=== PATIENT | female | born 1930 | race Caucasian/White ===

== ENCOUNTER → 2017-01-17 | Outpatient (CLI) | payer MEDICARE ==
[2014-10-25 10:12] VITALS: BP 128/68
[~2017-01-17] MED LIST: ACET325T9 PO; ASPI-482 PO; ATOR20TA58 PO; IOHEXOL 240 MG/ML 50ML VIAL. PO ONE; LISI2.5T PO; METO25TA9 PO; MULT1TAB90 PO; OMEG1CAP6 PO
--- NOTE | 2017-01-17 15:02 | RAD ---
CT abdomen without contrast 01/17/2017 at 1426 hours Indication: Epigastric abdominal pain Comparison: None available Technique: Multiple axial CT images of the abdomen was performed without intravenous contrast. Coronal and sagittal reformats are provided. Oral contrast was administered. Findings: There is subsegmental atelectasis at the lung bases. Heart is enlarged. Cardiac pacer wires are partially profiled. Mitral valvular calcification is present. The lack of intravenous contrast limits evaluation of the solid abdominal viscera. The liver is normal. The spleen is normal. Bilateral adrenal glands are normal. The gallbladder is present without adjacent inflammatory changes. Pancreas is normal in appearance. No definite intrahepatic or extrahepatic biliary ductal dilatation. The abdominal aorta is normal in course and caliber. Moderate atherosclerotic calcified abdominal aorta is present. Evaluation for abdominal lymphadenopathy is limited by the lack of intravenous contrast. There is no free intraperitoneal air. No free fluid within the abdomen. There is a 1-2 mm calculus in inferior pole of the left kidney. There is no hydronephrosis. No contour deforming renal mass. Visualized small and large bowel are normal in caliber. There is a fluid collection in the anterior abdominal wall measuring 1.5 x 2.8 x 2.5 cm. No overlying skin thickening. There is a right abdominal wall hernia containing loops of nondilated small bowel, partially profiled. No suspicious osseous lesions are identified. Mild levoconvex scoliosis of the thoracolumbar spine centered at L1-L2. Moderate degenerative changes identified at L1-L2. Impression: 1. Cardiomegaly. Dense mitral valvular calcifications are present. 2. There is a nonspecific small fluid collection in the anterior abdominal wall measuring 2.8 x 1.5 x 2.4 cm. This may represent a resolving hematoma. Alternatively, correlate for site of insulin/pharmaceutical injection. There is no surrounding inflammatory change or overlying skin thickening. 3. Partially profiled right lateral abdominal wall hernia containing loops of nondilated small bowel. 4. No intraabdominal inflammatory changes are noted.
== END | disposition home or self-care (01) ==
LOC: CT 13:48
PROVIDERS: ATTEND Internal Medicine
DX: K46.9 Unspecified abdominal hernia without obstruction or gangrene (principal); I51.7 Cardiomegaly; M47.896 Other spondylosis, lumbar region; M41.86 Other forms of scoliosis, lumbar region
CPT/HCPCS: 74150; Q9966

== ENCOUNTER 2017-03-01 11:17 | Observation (INO) | payer MEDICARE ==
[2017-03-01] VITALS (8 sets, daily range): BP systolic 101–122; BP diastolic 52–69
[~2017-03-01] VITALS: Ht 147.3 cm; Wt 50.3 kg
[~2017-03-01 11:17] MED LIST changes: +CALC500T30 PO; +CHOL10003 PO; +DENO60DI SQ; +GLUC-142 PO; +HYDROmorphone 2 MG/ML VIAL IV PRN; -IOHEXOL 240 MG/ML 50ML VIAL. PO ONE; +LIDOCAINE 1% 1 ML SYRINGE. ID PRN; +MORPHINE SULFATE 4 MG/ML DISP.SYRIN. IV PRN; +ONDANSETRON PF 4 MG/2 ML VIAL. IV PRN; +PROCHLORPERAZINE 10 MG/2 ML VIAL. IV PRN; +ceFAZolin 2GM PREMIX 2 GM/50 ML BAG IV ONE; +fentaNYL PF VIAL 100 MCG/2 ML VIAL IV PRN
[2017-03-01] MEDS: IV RINGERS,LACTATED 1000ML 1,000 ML IV SCH ×2 (11:57→16:11)
--- NOTE | 2017-03-01 12:04 | EKG ---
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
[2017-03-01] MEDS ORDERED: fentaNYL PF VIAL 100 MCG/2 ML VIAL ONE ×3 (12:55→16:12)
[2017-03-01] MEDS ORDERED: DEXAMETHASONE SOD PHOS 20 MG/5 ML VIAL. ONE (12:55)
[2017-03-01] MEDS ORDERED: LIDOCAINE 2% PF Vial for OR 5 ML VIAL. ONE (12:55)
[2017-03-01] MEDS ORDERED: ONDANSETRON PF 4 MG/2 ML VIAL. ONE (12:55)
[2017-03-01] MEDS ORDERED: PROPOFOL 20 ML IV ONE (12:55)
[2017-03-01] MEDS ORDERED: ROCURONIUM 100 MG/10 ML VIAL. ONE (12:56)
[2017-03-01] MEDS ORDERED: SEVOFLURANE 61 TO 120 MINUTES. IH ONE (15:03)
[2017-03-01] MEDS ORDERED: NEOSTIGMINE METHYLSULFATE 5 MG/5 ML SYRINGE. ONE (15:03)
[2017-03-01] MEDS ORDERED: GLYCOPYRROLATE 1 MG/5 ML VIAL. ONE (15:03)
[2017-03-01] MEDS ORDERED: fentaNYL PF VIAL 100 MCG/2 ML VIAL IV PRN (15:45)
[2017-03-01] MEDS ORDERED: ONDANSETRON PF 4 MG/2 ML VIAL. IV PRN (15:45)
[2017-03-01] MEDS ORDERED: 0.9 % SODIUM CHLORIDE 10 ML DISP.SYRIN. IV PRN (15:45)
[2017-03-01] MEDS ORDERED: HYDROcodone/APAP 5/325MG 1 TAB TABLET PO PRN (15:45)
--- NOTE | 2017-03-01 15:48 | PDOC4 ---
Operative Note Operative Note Operative Note: Preoperative Diagnosis: Ventral hernia 2 Postoperative Diagnosis: Upper abdominal ventral hernia, right abdominal spigelian hernia Procedure: Repair of upper abdominal ventral hernia with mesh, repair of right spigelian hernia with mesh Surgeon: Fan Dogger: Ru WALKER Anesthesia: Gen. EBL: 20 mL Specimen: None Drains: None Complications: None Indication: The patient was referred due to the presence of 2 abdominal hernias. One is located in the upper abdomen and one in the right lower quadrant. She was offered surgical pad of the hernias. The details of hernia repair were discussed including the use of mesh. The risks of surgery were discussed as well which include bleeding, infection, hernia recurrence, pain, anesthetic risk, potential need for additional surgery or procedure. She understands and would like to proceed. Description: The patient was taken to the operating room and placed supine on the operating table. Gen. anesthesia was performed. The abdomen was prepped with ChloraPrep and draped with sterile towels, sheets, and an Ioban. Attention was directed initially to the upper midabdomen. A small vertical midline incision was made overlying the palpable hernia. Cautery dissection was carried down to the subcutaneous tissue. The patient did have some extruded fatty tissue in the subcutaneous space from the hernia. We mobilized the edges of the fascial defect showing a fairly small hernia defect. A preperitoneal plane was developed and the extruded fat was reduced to the abdominal cavity. A medium- sized Ventralex ST mesh patch was used for the repair. The mesh was placed in the newly formed preperitoneal space. The mesh provided good coverage and overlap in all directions of the hernia defect. The mesh was sutured into position with interrupted 0 Prolene placed at the 12, 3, 6, 9 o'clock positions. The fascial edges were then closed over the mesh with 0 Prolene. The wound was then covered with a sterile towel and attention was directed to the right lower quadrant. A transverse incision was made overlying the hernia. Cautery dissection was carried down to the subcutaneous tissues. The external oblique aponeurosis was intact however there was some redundancy and a prominent bulge consistent with a spigelian and hernia. The external oblique was opened exposing some extruded preperitoneal fatty contents. The edges of the hernia defect were clearly demarcated and the fatty tissue was reduced. The hernia defect was filled using a large Phasix mesh plug. The internal oblique muscle was approximated over the plug closing the hernia defect. An onlay flat Phasix mesh patch was then used to reinforce the repair. The patch was sutured into position using interrupted 2-0 Vicryl stitches. The subcutaneous tissue was then closed over the mesh with 3-0 Vicryl. The skin of both incisions was then closed with 4-0 Monocryl. Steri-Strips and sterile dressings were applied. The patient tolerated the procedure well and was sent to the recovery room in stable condition. At the end of the case all counts were correct. JOEL GOTTI MD Mar 01, 2017 15:48
[2017-03-01] MEDS: fentaNYL PF VIAL 100 MCG/2 ML VIAL IV PRN ×2 (16:14→16:34)
[2017-03-01] MEDS: IV 1/2 NORMAL SALINE 1,000 ML IV SCH (19:20)
[2017-03-02 03:00] VITALS: BP 104/45
[2017-03-02 07:20] VITALS: BP 113/48
[2017-03-02] MEDS: ENOXAPARIN 40 MG/0.4 ML SYRINGE. SQ SCH (10:58)
[2017-03-02 11:05] VITALS: BP 109/48
[2017-03-02] MEDS: IV 1/2 NORMAL SALINE 1,000 ML IV SCH (12:00)
--- NOTE | 2017-03-02 13:30 | PDOC ---
JOSSUE JIANG APRN 03/02/17 1330: SURGICAL PROGRESS NOTE Subjective she is having a significant amount of pain, cant move much due to pain no n/v has not had any pain medication Vital Signs Vital Signs Date Time Temp Pulse Resp B/P (MAP) Pulse Ox O2 Delivery O2 Flow Rate FiO2 03/02/17 11:05 98.1 78 18 109/48 (68) 96 Nasal Cannula 2.0 98.1 I&O Intake and Output 03/02/17 07:00 Intake Total 1250 ml Output Total 370 ml Balance 880 ml Intake IV Total 1250 ml Output Urine Total 350 ml Estimated Blood Loss 20 ml # Voids 3 # Bowel Movements 1 General: Alert, Oriented X3, Cooperative, No acute distress Abdomen: Soft, Other (incisional TTP, dressings dry ) Assessment/Plan s/p hernia repair increase activity, PT/OT consult discussed using some pain pills to allow for more activity Problems: JOEL GOTTI MD 03/02/172040: SURGICAL PROGRESS NOTE Assessment/Plan Reviewed, agree with above Problems: JOSSUE JIANG APRN Mar 02, 2017 13:30 JOEL GOTTI MD Mar 02, 2017 20:41
[2017-03-02 15:24] VITALS: BP 110/41
[2017-03-02 19:00] VITALS: BP 120/55
[2017-03-02] MEDS: HYDROcodone/APAP 5/325MG 1 TAB TABLET PO PRN (20:44)
[2017-03-02 23:20] VITALS: BP 126/56
[2017-03-03 03:00] VITALS: BP 113/56
[2017-03-03 07:00] VITALS: BP 133/61
[2017-03-03] MEDS: ENOXAPARIN 40 MG/0.4 ML SYRINGE. SQ SCH (09:25)
[2017-03-03] MEDS: HYDROcodone/APAP 5/325MG 1 TAB TABLET PO PRN (09:55)
[2017-03-03 11:00] VITALS: BP 121/59
--- NOTE | 2017-03-06 14:09 | PDOC3 ---
Discharge Summary Date of Admission: Mar 01, 2017 Date of Discharge: Mar 03, 2017 Follow-Up: Other (2 weeks) Admitting Diagnosis comment: ventral hernia Problems: FINAL DIAGNOSIS Upper abdominal ventral hernia, right abdominal spigelian hernia Brief Hospital Course Ms. Vega is a 86 old female who underwent repair of upper abdominal ventral hernia with mesh, repair of right spigelian hernia with mesh. Postoperatively tolerating diet, ambulating, and pain managed. Ready for discharge home. CONDITION AT DISCHARGE: Stable Discharge Medications Current Medications Ondansetron HCl (Zofran) 4 mg PRN Q6HRS PRN IV NAUSEA/VOMITING; Start 03/01/17 at 07:00; Stop 03/02/17 at 06:59; Status DC Fentanyl Citrate (Fentanyl 2ml Vial) 25 mcg PRN Q5MIN PRN IV MILD PAIN; Start 03/01/17 at 07:00; Stop 03/02/17 at 06:59; Status DC Fentanyl Citrate (Fentanyl 2ml Vial) 50 mcg PRN Q5MIN PRN IV MODERATE PAIN Last administered on 03/01/17 16:34; Start 03/01/17 at 07:00; Stop 03/02/17 at 06:59; Status DC Morphine Sulfate 1 mg PRN Q10MIN PRN IV SEVERE PAIN; Start 03/01/17 at 07:00; Stop 03/02/17 at 06:59; Status DC Ringer's Solution 1,000 ml @ 30 mls/hr Q24H IV Last administered on 03/01/17 16:11; Start 03/01/17 at 07:00; Stop 03/01/17 at 18:59; Status DC Lidocaine HCl 2 ml PRN 1X PRN ID PRIOR TO IV START; Start 03/01/17 at 07:00; Stop 03/02/17 at 06:59; Status DC Hydromorphone HCl (Dilaudid) 0.5 mg PRN Q10MIN PRN IV SEV PAIN, Second choice; Start 03/01/17 at 07:00; Stop 03/02/17 at 06:59; Status DC Prochlorperazine Edisylate (Compazine) 5 mg PACU PRN PRN IV NAUSEA, MRX1 Last administered on 03/01/17 16:13; Start 03/01/17 at 07:00; Stop 03/02/17 at 06:59 ; Status DC Cefazolin Sodium/ Dextrose 50 ml @ 100 mls/hr 1X PREOP PRN IV PRIOR TO PROCEDURE Last administered on 03/01/17t 14:08; Start 03/01/17 at 06:00; Stop at 18:00; Status DC Dexamethasone Sodium Phosphate (Decadron) 20 mg STK-MED ONCE .ROUTE ; Start at 12:55; Stop 03/01/17 at 12:56; Status DC Ondansetron HCl (Zofran) 4 mg STK-MED ONCE .ROUTE ; Start 03/01/17 at 12:55; Stop 03/01/17 at 12:56; Status DC Propofol 20 ml @ As Directed STK-MED ONCE IV ; Start 03/01/17 at 12:55; Stop at 12:56; Status DC Lidocaine HCl (Lidocaine Pf 2% Vial) 5 ml STK-MED ONCE .ROUTE ; Start 03/01/17 at 12:55; Stop 03/01/17 at 12:56; Status DC Fentanyl Citrate (Fentanyl 2ml Vial) 100 mcg STK-MED ONCE .ROUTE ; Start at 12:55; Stop 03/01/17 at 12:56; Status DC Rocuronium Bennett (Zemuron) 100 mg STK-MED ONCE .ROUTE ; Start 03/01/17 at 12: 56; Stop 03/01/17 at 12:57; Status DC Fentanyl Citrate (Fentanyl 2ml Vial) 100 mcg STK-MED ONCE .ROUTE ; Start at 13:04; Stop 03/01/17 at 13:05; Status DC Glycopyrrolate (Robinul) 1 mg STK-MED ONCE .ROUTE ; Start 03/01/17 at 15:03; Stop 03/01/17 at 15:04; Status DC Neostigmine Methylsulfate 5 mg STK-MED ONCE .ROUTE ; Start 03/01/17 at 15:03; Stop 03/01/17 at 15:04; Status DC Sevoflurane (Ultane) 60 ml STK-MED ONCE IH ; Start 03/01/17 at 15:03; Stop 03/01 at 15:04; Status DC Enoxaparin Sodium (Lovenox 40mg Syringe) 40 mg Q24H SQ Last administered on 09:25; Start 03/02/17 at 09:00; Stop 03/03/17 at 14:03; Status DC Sodium Chloride (Normal Saline Flush) 3 ml QSHIFT PRN IV AFTER MEDS AND BLOOD DRAWS; Start 03/01/17 at 15:45; Stop 03/03/17 at 14:03; Status DC Sodium Chloride 1,000 ml @ 50 mls/hr Q20H IV Last administered on 03/01/17 19 :20; Start 03/01/17 at 16:00; Stop 03/02/17 at 19:39; Status DC Acetaminophen/ Hydrocodone Bitart (Lortab 5/325) 1 tab PRN Q4HRS PRN PO MILD PAIN Last administered on 03/03/17 09:55; Start 03/01/17 at 15:45; Stop at 14:03; Status DC Acetaminophen/ Hydrocodone Bitart (Lortab 5/325) 2 tab PRN Q4HRS PRN PO MODERATE PAIN, SEVERE PAIN Last administered on 03/02/17 13:45; Start 03/01/17 at 15:45; Stop 03/03/17 at 14:03; Status DC Ondansetron HCl (Zofran) 4 mg PRN Q6HRS PRN IV NAUESA, 1ST CHOICE; Start at 15:45; Stop 03/03/17 at 14:03; Status DC Fentanyl Citrate (Fentanyl 2ml Vial) 25 mcg PRN Q2HR PRN IV PAIN; Start at 15:45; Stop 03/03/17 at 14:03; Status DC Fentanyl Citrate (Fentanyl 2ml Vial) 100 mcg STK-MED ONCE .ROUTE ; Start at 16:12; Stop 03/01/17 at 16:13; Status DC Cefazolin Sodium/ Dextrose (Ancef 2gm Premix) 2 gm STK-MED ONCE IV ; Start 03/01 at 06:00; Stop 03/02/17 at 11:43; Status DC Active Scripts Active Fish Oil 1,000 Mg Capsule ([place]-3 Fatty Acids/Fish Oil) 1,000 Mg Capsule 1,000 Mg PO DAILY Thera-M Tablet (Multivits,Ca,Minerals/Iron/Fa) 1 Tab Tablet 1 Tab PO DAILY Tylenol (Acetaminophen) 325 Mg Tablet 650 Mg PO PRN Q6HRS PRN Reported Osteo Bi-Flex Tablet (Glucosamine/D3/Boswellia Mira) 1 Each Tablet 1 Each PO DAILY Vitamin D3 (Cholecalciferol (Vitamin D3)) 1,000 Unit Tablet 1 Tab PO DAILY Calcium (Calcium Carbonate) 500 Mg Tablet 500 Mg PO BID Prolia (Denosumab) 60 Mg/1 Ml Disp.syrin 60 Mg SQ [id number] Aspir 81 (Aspirin) 81 Mg Tablet.dr 1 Tab PO DAILY Atorvastatin Calcium 20 Mg Tablet 1 Tab PO DAILY Allergies Allergies Coded Allergies Type Severity Reaction Last Updated Verified No Known Drug Allergies 03/01/17 No Disposition/Orders: D/C to Home Patient Instructions see discharge instructions JOSSUE JIANG DRY KILN BURNER Mar 06, 2017 14:09
== END 2017-03-03 13:50 | disposition home or self-care (01) ==
LOC: SURG 11:17 → 4 NORTH 16:25
PROVIDERS: ADMIT Surgery; ATTEND Surgery
DX: K43.9 Ventral hernia without obstruction or gangrene (principal)
CPT/HCPCS: 49560; 49568; 49590; 93005; 96372; C1781; G0378; G0379; J0690; J0780; J1100; J1650; J2405; J2704; J2710; J3010; J3490; J7120; J2001

== ENCOUNTER 2017-04-25 22:36 | Inpatient (IN) | payer MEDICARE ==
[~2017-04-25] VITALS: Ht 149.9 cm; Wt 51.4 kg
[~2017-04-25 22:36] MED LIST changes: -HYDROmorphone 2 MG/ML VIAL IV PRN; -LIDOCAINE 1% 1 ML SYRINGE. ID PRN; +METO-239 PO; -METO25TA9 PO; -MORPHINE SULFATE 4 MG/ML DISP.SYRIN. IV PRN; -ONDANSETRON PF 4 MG/2 ML VIAL. IV PRN; -PROCHLORPERAZINE 10 MG/2 ML VIAL. IV PRN; -ceFAZolin 2GM PREMIX 2 GM/50 ML BAG IV ONE; -fentaNYL PF VIAL 100 MCG/2 ML VIAL IV PRN
--- NOTE | 2017-04-25 22:42 | PHYS DOC ---
Past Medical History Past Medical History: Arrhythmia Past Surgical History: Pacemaker Additional Past Surgical Histo: Pacemaker placed10/16/14 Alcohol Use: None Drug Use: None Adult General Chief Complaint Chief Complaint: WEAKNESS/GENERALIZED HPI HPI Patient is a 86 year old female who presents with in her lower extremity weakness and right leg numbness in addition to right side of her face numbness. She states it all started at 9:00 and for the first 30 minutes she could not move. She was having a hold onto a doorway and then finally was able to start to move. She drove herself to the ER and was able to walk into the ER. She at this point states that all of her symptoms have resolved. 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 She states it hasn't caused any trouble since then. She denies any chest pain shortness of breath nausea vomiting. She does take a baby aspirin daily. Review of Systems Review of Systems Constitutional: Denies fever or chills Eyes: Denies change in visual acuity, redness, or eye pain HENT: Denies nasal congestion or sore throat Respiratory: Denies cough or shortness of breath Cardiovascular: No additional information not addressed in HPI GI: Denies abdominal pain, nausea, vomiting, bloody stools or diarrhea : Denies dysuria or hematuria Musculoskeletal: Denies back pain or joint pain Integument: Denies rash or skin lesions Neurologic: Denies headache, focal weakness or sensory changes Endocrine: Denies polyuria or polydipsia Current Medications Current Medications Allergies Allergies Allergies Coded Allergies Type Severity Reaction Last Updated Verified No Known Drug Allergies 03/01/17 No Physical Exam Physical Exam Constitutional: Well developed, well nourished, no acute distress, non-toxic appearance. HENT: Normocephalic, atraumatic, bilateral external ears normal, oropharynx moist, no oral exudates, nose normal. Eyes: PERRLA, EOMI, conjunctiva normal, no discharge. Neck: Normal range of motion, no tenderness, supple, no stridor. Cardiovascular:Heart rate regular rhythm, 3/6 systolic ejection murmur Lungs & Thorax: Bilateral breath sounds clear to auscultation Abdomen: Bowel sounds normal, soft, no tenderness, no masses, no pulsatile masses. Skin: Warm, dry, no erythema, no rash. Back: No tenderness, no CVA tenderness. Extremities: No tenderness, no cyanosis, no clubbing, ROM intact, no edema. Neurologic: Alert and oriented X 3, normal motor function, normal sensory function, no focal deficits noted. Cranial nerves II through XII intact, strength 5 out of 5 bilateral upper and lower extremities throughout. Psychologic: Affect normal, judgement normal, mood normal. Current Patient Data Vital Signs Lab Values Laboratory Tests Test 04/25/17 22:17 White Blood Count 6.5 x10^3/uL (4.0-11.0) Red Blood Count 4.06 x10^6/uL (3.50-5.40) Hemoglobin 13.6 g/dL (12.0-15.5) Hematocrit 40.8 % (36.0-47.0) Mean Corpuscular Volume 100 fL (79-100) Mean Corpuscular Hemoglobin 33 pg (25-35) Mean Corpuscular Hemoglobin Concent 33 g/dL (31-37) Red Cell Distribution Width 14.8 % (11.5-14.5) H Platelet Count 121 x10^3/uL (140-400) L Neutrophils (%) (Auto) 52 % (31-73) Lymphocytes (%) (Auto) 30 % (24-48) Monocytes (%) (Auto) 12 % (0-9) H Eosinophils (%) (Auto) 5 % (0-3) H Basophils (%) (Auto) 1 % (0-3) Neutrophils # (Auto) 3.3 x10^3uL (1.8-7.7) Lymphocytes # (Auto) 2.0 x10^3/uL (1.0-4.8) Monocytes # (Auto) 0.8 x10^3/uL (0.0-1.1) Eosinophils # (Auto) 0.3 x10^3/uL (0.0-0.7) Basophils # (Auto) 0.1 x10^3/uL (0.0-0.2) Prothrombin Time 12.0 SEC (11.7-14.0) Prothrombin Time INR 0.9 (0.8-1.1) Sodium Level 143 mmol/L (136-145) Potassium Level 4.1 mmol/L (3.5-5.1) Chloride Level 106 mmol/L (98-107) Carbon Dioxide Level 30 mmol/L (21-32) Anion Gap 7 (6-14) Blood Urea Nitrogen 21 mg/dL (7-20) H Creatinine 0.7 mg/dL (0.6-1.0) Estimated GFR (Cockcroft-Gault) 79.3 Glucose Level 103 mg/dL (70-99) H Lactic Acid Level 1.6 mmol/L (0.4-2.0) Calcium Level 8.8 mg/dL (8.5-10.1) Magnesium Level 2.1 mg/dL (1.8-2.4) Total Bilirubin 0.4 mg/dL (0.2-1.0) Direct Bilirubin 0.1 mg/dL (0.0-0.2) Aspartate Amino Transferase (AST) 41 U/L (15-37) H Alanine Aminotransferase (ALT) 35 U/L (14-59) Alkaline Phosphatase 94 U/L (46-116) Creatine Kinase 78 U/L (26-192) Creatine Kinase MB (Mass) 6.2 ng/mL (0.0-3.6) H Creatine Kinase MB Relative Index 7.9 % (0-4) H Troponin I Quantitative 0.615 ng/mL (0.000-0.055) UQ-Dqa-S-Type Natriuretic Peptide 1557 pg/mL (0-449) H Total Protein 6.8 g/dL (6.4-8.2) Albumin 3.5 g/dL (3.4-5.0) Thyroid Stimulating Hormone (TSH) 6.370 uIU/mL (0.358-3.74) H Laboratory Tests 04/25/17 22:17 Laboratory Tests 04/25/17 22:17 EKG EKG EKG shows sinus rhythm with a rate of [address] elevations appreciated, T-wave inversions noted in V1 through V4, lead 3, aVF, normal axis , incomplete right bundle branch morphology noted, QTC 436 ms, as interpreted by me. EKG is similar to one performed March 01, 2017 Radiology/Procedures Radiology/Procedures [facility] [address] [place] [address] IMAGING REPORT Signed PATIENT: EUSEBIA HDEZ ACCOUNT: [id number] : 1930 LOCATION: ER AGE: 86 SEX: F EXAM STATUS: PRE ER ORD. PHYSICIAN: CHEO SCHULTE MD REASON: left side of body weak PROCEDURE: CT HEAD WO CONTRAST CT head without intravenous contrast History: Right foot and leg numbness since 2100 hours. Comparison: None. Technique: Axial images are obtained of the head from the skull base through the vertex without IV contrast. Exposure: One or more of the following individualized dose reduction techniques were utilized for this examination: 1. Automated exposure control 2. Adjustment of the mA and/or kV according to patient size 3. Use of iterative reconstruction technique Findings: The ventricles are appropriate in size, shape, and location for the patient's age. No obvious intracranial mass, mass-effect, midline shift, hemorrhage or obvious acute infarction is identified. Basilar cisterns are patent. Patchy, nonspecific white matter low-attenuation is seen, probably from chronic microvascular ischemic disease. Bone windows demonstrate no acute calvarial abnormality. The visualized paranasal sinuses appear clear. Impression: No acute intracranial process. Please note that CT can be relatively insensitive to acute ischemic infarction for up to 24 hours after symptom onset. Electronically signed by: Berlin Soliz MD (04/25/2017 11:19 PM) [facility] DICTATED and SIGNED BY: BERLIN SOLIZ MD DATE: 04/25/172316 CC: CHEO SCHULTE MD; BERLIN APARICIO MD ~ [facility] [address] [place] [address] IMAGING REPORT Signed PATIENT: EUSEBIA HDEZ ACCOUNT: [id number] : 1930 LOCATION: ER AGE: 86 SEX: F EXAM STATUS: REG ER ORD. PHYSICIAN: CHEO SCHULTE MD REASON: right leg numbness PROCEDURE: CTA HEAD/NECK - CODE STROKE CT angiography head and neck contrast COMPARISON: CT head April 25, 2017. TECHNIQUE: Helical CT imaging of the head and neck with multiplanar 3-D MIP and volume reconstructions of the arteries characterize vascular anatomy and pathology with 75 mL Omnipaque 180 300 intravenous contrast. HISTORY: Right lower extremity numbness paresthesia. PQRS statement: CT scans at this facility use dose reduction including either automated exposure control, iterative reconstructions, and /or weight based radiation dosing via mA and kV modification when appropriate to reduce radiation dose to as low as reasonably achievable. Stenosis calculations for CT, MR, and conventional angiography are based upon measurements of the distal ICA diameter in accordance with the NASCET methodology. Stenosis calculations for carotid ultrasound studies are derived from validated velocity criteria which are known to correlate with the NASCET methodology. CT angiography neck findings: Three-vessel aortic arch. Ostium of the innominate artery from the aorta is outside the [id number]-cjbe. Codominant vertebral arteries demonstrate no plaque, dissection, stenosis or occlusion. Minimal calcified plaque prevertebral right subclavian artery without stenosis. Left carotid artery demonstrates tortuosity of the proximal common carotid and thoracic inlet, there is a internal carotid artery tonsillar loop, no plaque, dissection, stenosis or occlusion. Right carotid artery demonstrates internal carotid artery tonsillar loop, no plaque dissection, stenosis or occlusion. Mild bilateral apical fibrosis. Left upper lobe calcified granuloma. Cervical disc osteophytes and facet osteophytes with multilevel spinal canal and neural foraminal stenoses. Intracranial CT angiogram findings: Posterior circulation demonstrates a combined trunk of the left anterior inferior and posterior inferior cerebellar arteries. Asymmetric heterogeneous diminished contrast enhancement of the left posterior inferior cerebellar artery could be indicative of stenotic disease no discrete filling defect or occlusion. Anterior circulation demonstrates calcified plaque of the cavernous carotid arteries with no stenosis. Ophthalmic arteries demonstrate patent enhancement. A patent anterior communicating artery. No intracranial arterial filling defect, stenosis, occlusion or aneurysm. Developmental venous anomaly left cerebellum. CT angiography neck impression: No plaque, stenosis or occlusion of the cervical carotid and vertebral arteries. Cervical disc disease. Intracranial CT angiogram impression: Multifocal stenoses of the left posterior inferior cerebellar artery may be due to plaque. No intra-arterial thromboembolus, occlusion or aneurysm. Electronically signed by: Simone Reich MD (04/26/2017 12:49 AM) [facility] DICTATED and SIGNED BY: SIMONE REICH MD DATE: 04/26/17 003 CC: CHEO SCHULTE MD; BERLIN APARICIO MD ~ Impressions: Bilateral leg weakness-resolved Right leg numbness-resolved Elevated troponin Dyslipidemia Osteoarthritis Pacemaker Course & Med Decision Making Course & Med Decision Making Pertinent Labs and Imaging studies reviewed. (See chart for details) Patient presents with complaints of bilateral leg weakness and inability to move them for about 30 minutes and then numbness in her right leg. Her NIH is 0. All of her symptoms have resolved upon arrival to the ER. She denies any shortness of breath fevers chills nausea or vomiting or chest pain. Her EKG is similar one performed in February 09, 2017. Her troponin is elevated at 0.6. We will start Lovenox, give full dose aspirin and admit to Dr. Aparicio with cardiology consultation and neurology auscultation. Patient's agreeable plans being in stable condition this time. I did discuss this plan with Dr. Aparicio and he agrees. Dragon Disclaimer Dragon Disclaimer This electronic medical record was generated, in whole or in part, using a voice recognition dictation system. Departure Departure Impression: Primary Impression: Elevated troponin Disposition: ADMITTED INPATIENT Admitting Physician: Berlin Aparicio Condition: STABLE Referrals: BERLIN APARICIO MD (PCP) CHEO SCHULTE MD Apr 25, 2017 22:42
[2017-04-25 23:20] LABS: BASO # 0.1 x10^3/uL (0.0-0.2); BASO % 1 % (0-3); EOS % 5 % (0-3); HEMATOCRIT 40.8 % (36.0-47.0); HEMOGLOBIN 13.6 g/dL (12.0-15.5); LYMPH % 30 % (24-48); MEAN CORPUSCULAR HEMOGLOBIN 33 pg (25-35); MEAN CORPUSCULAR HGB CONC 33 g/dL (31-37); MEAN CORPUSCULAR VOLUME 100 fL (79-100); MONO % 12 % (0-9); NEUT % 52 % (31-73); PLATELET COUNT 121 x10^3/uL (140-400); RED BLOOD COUNT 4.06 x10^6/uL (3.50-5.40); RED CELL DISTRIBUTION WIDTH 14.8 % (11.5-14.5); WHITE BLOOD COUNT 6.5 x10^3/uL (4.0-11.0)
--- NOTE | 2017-04-25 23:22 | RAD ---
CT head without intravenous contrast History: Right foot and leg numbness since 2100 hours. Comparison: None. Technique: Axial images are obtained of the head from the skull base through the vertex without IV contrast. Exposure: One or more of the following individualized dose reduction techniques were utilized for this examination: 1. Automated exposure control 2. Adjustment of the mA and/or kV according to patient size 3. Use of iterative reconstruction technique Findings: The ventricles are appropriate in size, shape, and location for the patient's age. No obvious intracranial mass, mass-effect, midline shift, hemorrhage or obvious acute infarction is identified. Basilar cisterns are patent. Patchy, nonspecific white matter low-attenuation is seen, probably from chronic microvascular ischemic disease. Bone windows demonstrate no acute calvarial abnormality. The visualized paranasal sinuses appear clear. Impression: No acute intracranial process. Please note that CT can be relatively insensitive to acute ischemic infarction for up to 24 hours after symptom onset. Electronically signed by: Berlin Castano MD (04/25/2017 11:19 PM) [facility]
[2017-04-25 23:27] LABS: INR 0.9 (0.8-1.1)
[2017-04-25 23:32] LABS: CALCIUM 8.8 mg/dL (8.5-10.1); CREATININE 0.7 mg/dL (0.6-1.0); GFR 79.3; POTASSIUM 4.1 mmol/L (3.5-5.1)
[2017-04-25] MEDS ORDERED: CONTRAST GIVEN MC PRN (23:45)
[2017-04-25 23:46] LABS: ALBUMIN 3.5 g/dL (3.4-5.0); DIRECT BILIRUBIN 0.1 mg/dL (0.0-0.2); MAGNESIUM 2.1 mg/dL (1.8-2.4); TOTAL BILIRUBIN 0.4 mg/dL (0.2-1.0); TOTAL PROTEIN 6.8 g/dL (6.4-8.2)
[2017-04-25 23:53] LABS: CKMB MASS 6.2 ng/mL (0.0-3.6)
[2017-04-26] VITALS (7 sets, daily range): BP systolic 121–147; BP diastolic 64–86
[2017-04-26] MEDS ORDERED: IV NORMAL SALINE 1000ML BAG 500 ML IV ONE
[2017-04-26 00:14] LABS: BILIRUBIN,URINE NEGATIVE (NEG); GLUCOSE,URINE NEGATIVE (NEG); NITRITE,URINE NEGATIVE (NEG); PH,URINE 6.5; PROTEIN,URINE NEGATIVE (NEG-TRACE); UROBILINOGEN,URINE 0.2 mg/dL (0.2 mg/dL)
[2017-04-26 00:19] LABS: BARBITURATES NEG (NEG); BENZODIAZEPINES NEG (NEG); CANNABINOIDS NEG (NEG); COCAINE NEG (NEG); METHADONE NEG (NEG); OPIATES NEG (NEG); PHENCYCLIDINE NEG (NEG)
[2017-04-26] MEDS ORDERED: IOHEXOL 300 MG/ML 75 ML VIAL IV ONE ×2 (00:30→10:45)
[2017-04-26 00:36] LABS: RBC,URINE OCC /HPF (0-2)
[2017-04-26 00:37] LABS: BACTERIA,URINE MANY /HPF (0-FEW)
--- NOTE | 2017-04-26 00:53 | RAD ---
CT angiography head and neck contrast COMPARISON: CT head April 25, 2017. TECHNIQUE: Helical CT imaging of the head and neck with multiplanar 3-D MIP and volume reconstructions of the arteries characterize vascular anatomy and pathology with 75 mL Omnipaque 180 300 intravenous contrast. HISTORY: Right lower extremity numbness paresthesia. PQRS statement: CT scans at this facility use dose reduction including either automated exposure control, iterative reconstructions, and /or weight based radiation dosing via mA and kV modification when appropriate to reduce radiation dose to as low as reasonably achievable. Stenosis calculations for CT, MR, and conventional angiography are based upon measurements of the distal ICA diameter in accordance with the NASCET methodology. Stenosis calculations for carotid ultrasound studies are derived from validated velocity criteria which are known to correlate with the NASCET methodology. CT angiography neck findings: Three-vessel aortic arch. Ostium of the innominate artery from the aorta is outside the [id number]. Codominant vertebral arteries demonstrate no plaque, dissection, stenosis or occlusion. Minimal calcified plaque prevertebral right subclavian artery without stenosis. Left carotid artery demonstrates tortuosity of the proximal common carotid and thoracic inlet, there is a internal carotid artery tonsillar loop, no plaque, dissection, stenosis or occlusion. Right carotid artery demonstrates internal carotid artery tonsillar loop, no plaque dissection, stenosis or occlusion. Mild bilateral apical fibrosis. Left upper lobe calcified granuloma. Cervical disc osteophytes and facet osteophytes with multilevel spinal canal and neural foraminal stenoses. Intracranial CT angiogram findings: Posterior circulation demonstrates a combined trunk of the left anterior inferior and posterior inferior cerebellar arteries. Asymmetric heterogeneous diminished contrast enhancement of the left posterior inferior cerebellar artery could be indicative of stenotic disease no discrete filling defect or occlusion. Anterior circulation demonstrates calcified plaque of the cavernous carotid arteries with no stenosis. Ophthalmic arteries demonstrate patent enhancement. A patent anterior communicating artery. No intracranial arterial filling defect, stenosis, occlusion or aneurysm. Developmental venous anomaly left cerebellum. CT angiography neck impression: No plaque, stenosis or occlusion of the cervical carotid and vertebral arteries. Cervical disc disease. Intracranial CT angiogram impression: Multifocal stenoses of the left posterior inferior cerebellar artery may be due to plaque. No intra-arterial thromboembolus, occlusion or aneurysm. Electronically signed by: Otis Reich MD (04/26/2017 12:49 AM) [id number]
[2017-04-26] MEDS ORDERED: ASPIRIN 325 MG TABLET PO ONE (01:00)
[2017-04-26] MEDS ORDERED: ONDANSETRON PF 4 MG/2 ML VIAL. IV PRN (01:15)
[2017-04-26] MEDS ORDERED: ANTI-COAG MONITOR BY PHARMACY. MC PRN (03:45)
--- NOTE | 2017-04-26 06:46 | EKG ---
[facility] [address] [place] [address] Test Date: 2017-04-25 Test Time: 22:52:29 Pat Name: EUSEBIA HDEZ Department: Room: 256 1 Gender: F Color Checker: : 1930 Requested By: CHEO SCHULTE Order Number: [id number] Reading MD: Measurements Intervals [place] Rate: 74 P: 49 WI: 130 QRS: 49 QRSD: 118 T: -14 QT: 392 QTc: 436 Interpretive Statements SINUS RHYTHM LEFT ATRIAL ABNORMALITY R-S TRANSITION ZONE IN V LEADS DISPLACED TO THE RIGHT INCOMPLETE RIGHT BUNDLE BRANCH BLOCK T ABNORMALITY IN ANTERIOR LEADS INFERIOR LEADS ABNORMAL ECG RI6.01 No previous ECG available for comparison
--- NOTE | 2017-04-26 07:47 | RAD ---
EXAM: Chest one view. HISTORY: Weakness. COMPARISON: 10/17/2014. FINDINGS: A frontal view of the chest is obtained. A left-sided pacemaker has its leads in the right atrium and right ventricle. There are no confluent infiltrates. There is no pneumothorax or pleural effusion. The heart is mildly enlarged. IMPRESSION: 1. Mild cardiomegaly.
--- NOTE | 2017-04-26 09:08 | PDOC2 ---
GABBIE GOLDEN INSIDE TRUCKER 04/26/17 0908: CARDIAC CONSULT DATE OF CONSULT Date of Consult DATE: 04/26/17 TIME: 08:52 REASON FOR CONSULT Reason for Consult: Elevated Troponin REFERRING PHYSICIAN Referring Physician: Dr. Hannah SOURCE Source: Chart review, Patient HISTORY OF PRESENT ILLNESS HISTORY OF PRESENT ILLNESS This is an 86 yo female who presented with right-sided weakness. Patient reports symptoms began around 9 pm yesterday. Went over to her sons house last night to check on him. While she was walking down the hallway, she developed severe weakness in her bilateral legs. 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 Used her has to brace herself against the wall. [place] as if the wall was moving. Stood for about 20 mins then was able to shuffle he feet to the front door. Also experienced tingling in the right side of her face and in bilateral hands. Was somehow able to get to her car and drive herself into the ED. Symptoms largely resolved prior to arrival although she reports altered sensation in her right FA/hand and mild impaired gait. Troponin noted to be mild elevated upon arrival, which prompted this consult. No previous h/o cardiac disease. Does report h/o cerebral aneurysm noted in 1959. PAST MEDICAL HISTORY Cardiovascular: Hyperlipidemia, Other (CHB s/p Biotronik PPM) Pulmonary: No pertinent hx CENTRAL NERVOUS SYSTEM: Other (cerebral aneurysm) GI: No pertinent hx Hepatobiliary: No pertinent hx Psych: No pertinent hx Musculoskeletal: Osteoarthritis Infectious disease: No pertinent hx ENT: No pertinent hx Renal/: No pertinent hx Endocrine: No pertinent hx Dermatology: No pertinent hx PAST SURGICAL HISTORY Past Surgical History: Hernia Repair, Tonsillectomy, Other (left breast biopsy) FAMILY HISTORY Family History: Other (noncontributory to age) SOCIAL HISTORY Smoke: No ALCOHOL: none Drugs: None Lives: Alone CURRENT MEDICATIONS CURRENT MEDICATIONS Current Medications Medications (Trade) Dose Ordered Sig/Joel Route PRN Reason Start Time Stop Time Status Last Admin Dose Admin Sodium Chloride 500 ml @ 1,000 mls/hr 1X ONCE IV 04/26/17 00:00 04/26/17 00:29 DC 04/25/17 23:55 Iohexol (Omnipaque 300 Mg/ml) 75 ml 1X ONCE IV 04/26/17 00:30 04/26/17 00:31 DC 04/26/17 00:19 Aspirin (Estrella Aspirin) 325 mg 1X ONCE PO 04/26/17 01:00 04/26/17 01:01 DC 04/26/17 01:25 Enoxaparin Sodium (Lovenox 60mg Syringe) 50 mg 1X ONCE SQ 04/26/17 01:30 04/26/17 01:31 DC 04/26/17 01:25 ALLERGIES ALLERGIES: Coded Allergies: No Known Drug Allergies (Unverified , 03/01/17) ROS Review of System 14 point ROS conducted with pertinent positives noted above in HPI PHYSICAL EXAM General: Alert, Oriented X3, Cooperative, No acute distress HEENT: Atraumatic, Mucous membr. moist/pink Lungs: Clear to auscultation, Normal air movement Heart: Regular rate, Normal S1, Normal S2, Other (2/6 systolic murmur ) Abdomen: Soft, No tenderness Extremities: No edema, Normal pulses Skin: No breakdown, No significant lesion Neuro: Normal speech, Sensation intact Psych/Mental Status: Mental status NL, Mood NL MUSCULOSKELETAL: Osteoarthritic changes both hands VITALS VITALS Vital Signs Date Time Temp Pulse Resp B/P (MAP) Pulse Ox O2 Delivery O2 Flow Rate FiO2 04/26/17 07:00 97.8 62 19 133/64 (87) 95 Room Air 97.8 LABS Lab: Laboratory Tests Test 04/25/17 22:17 04/26/17 00:02 04/26/17 07:08 White Blood Count 6.5 x10^3/uL (4.0-11.0) Red Blood Count 4.06 x10^6/uL (3.50-5.40) Hemoglobin 13.6 g/dL (12.0-15.5) Hematocrit 40.8 % (36.0-47.0) Mean Corpuscular Volume 100 fL (79-100) Mean Corpuscular Hemoglobin 33 pg (25-35) Mean Corpuscular Hemoglobin Concent 33 g/dL (31-37) Red Cell Distribution Width 14.8 % (11.5-14.5) Platelet Count 121 x10^3/uL (140-400) Neutrophils (%) (Auto) 52 % (31-73) Lymphocytes (%) (Auto) 30 % (24-48) Monocytes (%) (Auto) 12 % (0-9) Eosinophils (%) (Auto) 5 % (0-3) Basophils (%) (Auto) 1 % (0-3) Neutrophils # (Auto) 3.3 x10^3uL (1.8-7.7) Lymphocytes # (Auto) 2.0 x10^3/uL (1.0-4.8) Monocytes # (Auto) 0.8 x10^3/uL (0.0-1.1) Eosinophils # (Auto) 0.3 x10^3/uL (0.0-0.7) Basophils # (Auto) 0.1 x10^3/uL (0.0-0.2) Prothrombin Time 12.0 SEC (11.7-14.0) Prothromb Time International Ratio 0.9 (0.8-1.1) Sodium Level 143 mmol/L (136-145) Potassium Level 4.1 mmol/L (3.5-5.1) Chloride Level 106 mmol/L (98-107) Carbon Dioxide Level 30 mmol/L (21-32) Anion Gap 7 (6-14) Blood Urea Nitrogen 21 mg/dL (7-20) Creatinine 0.7 mg/dL (0.6-1.0) Estimated GFR (Cockcroft-Gault) 79.3 Glucose Level 103 mg/dL (70-99) Lactic Acid Level 1.6 mmol/L (0.4-2.0) Calcium Level 8.8 mg/dL (8.5-10.1) Magnesium Level 2.1 mg/dL (1.8-2.4) Total Bilirubin 0.4 mg/dL (0.2-1.0) Direct Bilirubin 0.1 mg/dL (0.0-0.2) Aspartate Amino Transf (AST/SGOT) 41 U/L (15-37) Alanine Aminotransferase (ALT/SGPT) 35 U/L (14-59) Alkaline Phosphatase 94 U/L (46-116) Creatine Kinase 78 U/L (26-192) Creatine Kinase MB (Mass) 6.2 ng/mL (0.0-3.6) Creatine Kinase MB Relative Index 7.9 % (0-4) Troponin I Quantitative 0.615 ng/mL (0.000-0.055) 1.711 ng/mL (0.000-0.055) FS-Rtd-A-Type Natriuretic Peptide 1557 pg/mL (0-449) Total Protein 6.8 g/dL (6.4-8.2) Albumin 3.5 g/dL (3.4-5.0) Thyroid Stimulating Hormone (TSH) 6.370 uIU/mL (0.358-3.74) Urine Collection Type Unknown Urine Color Yellow Urine Clarity Clear Urine pH 6.5 Urine Specific [place] <=1.005 Urine Protein Negative mg/dL (NEG-TRACE) Urine Glucose (UA) Negative mg/dL (NEG) Urine Ketones (Stick) Negative mg/dL (NEG) Urine Blood Negative (NEG) Urine Nitrite Negative (NEG) Urine Bilirubin Negative (NEG) Urine Urobilinogen Dipstick 0.2 mg/dL (0.2 mg/dL) Urine Leukocyte Esterase Trace (NEG) Urine RBC Occ /HPF (0-2) Urine WBC 11-20 /HPF (0-4) Urine Squamous Epithelial Cells None /LPF Urine Bacteria Many /HPF (0-FEW) Urine Opiates Screen Neg (NEG) Urine Methadone Screen Neg (NEG) Urine Barbiturates Neg (NEG) Urine Phencyclidine Screen Neg (NEG) Urine Amphetamine/Methamphetamine Neg (NEG) Urine Benzodiazepines Screen Neg (NEG) Urine Cocaine Screen Neg (NEG) Urine Cannabinoids Screen Neg (NEG) Urine Ethyl Alcohol Neg (NEG) ECHOCARDIOGRAM ECHOCARDIOGRAM <Conclusion> Left ventricle systolic function is normal. The Ejection Fraction is estimated at 50-55%. Transmitral Doppler flow pattern is Grade I-abnormal relaxation pattern. The left atrium is moderately dilated. There is moderate valvular aortic stenosis with mean pressure gradient of 26 mmHg. Prolapse of posterior mitral valve leaflet with moderate to severe mitral regurgitation. Mild to moderate tricuspid regurgitation. There is mild-moderate pulmonary hypertension. The PA pressure was estimated at 39 mmHg. There is no evidence of significant pericardial effusion. DATE: 12/11/15 1604 ASSESSMENT/PLAN ASSESSMENT/PLAN 1. NSTEMI; highest 1.7. CP free. Previous echo with preserved LV function as noted above- will repeat. 2. Hypertension; well-controlled 3. Hyperlipidemia; resume statin 4. Possible CVA; CT angiogram notable for left posterior cerebellar artery stenosis. PT/OT. neurology following 5. PPM in situ (Biotronik) 6. NSVT; brief episode of NSVT this am noted on telemetry. Mg WNL 7. Hypothyroidism; TSH 6.37. Management as per PCP Recommendations Obtain check to assess LV function/presence of WMA check lipid, trend troponin ASA, Lovenox administered Interrogate device Consider further ischemia workup Further recommendations pending diagnostics. Problems: ARA KRAMER MD 04/26/17 1645: CARDIAC CONSULT ALLERGIES ALLERGIES: Coded Allergies: No Known Drug Allergies (Unverified , 03/01/17) ASSESSMENT/PLAN ASSESSMENT/PLAN Patient seen and examined. 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 Troponin elevation consistent with non-STEMI but patient is chest pain-free. Brief episode of NSVT noted on telemetry. 2-D echo showed normal LV function with moderate aortic stenosis and moderate mitral regurgitation. Plan for Lexiscan nuclear stress test to rule out ischemia. Continue workup of stroke-like symptoms per neurology team. Thank you for your consultation. Problems: GABBIE GOLDEN APRN Apr 26, 2017 09:08 ARA KRAMER MD Apr 26, 2017 16:45
[2017-04-26 09:30] LABS: CHOLESTEROL/HDL RATIO 2.2
[2017-04-26] MEDS ORDERED: ACETAMINOPHEN 500 MG TABLET PO PRN (10:30)
[2017-04-26] MEDS ORDERED: MAGNESIUM HYDROXIDE 2,400 MG/30 ML ORAL.SUSP. PO PRN (10:30)
--- NOTE | 2017-04-26 10:31 | PDOC ---
Provider Note Provider Note history and physical dictated # [id number] BASIL APARICIO MD Apr 26, 2017 10:31
--- NOTE | 2017-04-26 10:42 | PDOC2 ---
NEUROLOGY CONSULT Date of Admission Date of Admission DATE: 04/26/17 TIME: 10:33 Reason for Consult Reason for Consult: Stroke symptoms Referring Physician Referring Physician: Dr. Chauhan Source Source: Caregiver, Chart review, Patient History of Present Illness History of Present Illness The patient is an 86-year-old right-handed female who was visiting family last night. About 9 PM she noticed right arm numbness and difficulty moving both feet. She felt lightheaded. She had to hold onto the wall. All symptoms resolved by the time she reached the emergency department, so she was deemed not to be an alteplase candidate. There is no prior history of stroke, seizure, or head injury. Past Medical History Musculoskeletal: Osteoarthritis Renal/: UTI, Other ( nephrolithiasis) Endocrine: Osteoporosis Past Surgical History Past Surgical History: Pacemaker, Cataract Removal, Tonsillectomy, Other ( Breast biopsy) Family History Family History: No pertinent hx Social History Social History , lives alone, no alcohol or tobacco Current Medications Current Medications Current Medications Sodium Chloride 500 ml @ 1,000 mls/hr 1X ONCE IV Last administered on 23:55; Start 04/26/17 at 00:00; Stop 04/26/17 at 00:29; Status DC Iohexol (Omnipaque 300 Mg/ml) 75 ml 1X ONCE IV Last administered on 00:19; Start 04/26/17 at 00:30; Stop 04/26/17 at 00:31; Status DC Info (Do NOT chart on this entry -- for MONITORING) 1 each PRN DAILY PRN MC SEE COMMENTS; Start 04/25/17 at 23:45; Stop 04/27/17 at 23:44 Aspirin (Estrella Aspirin) 325 mg 1X ONCE PO Last administered on 04/26/17 01: 25; Start 04/26/17 at 01:00; Stop 04/26/17 at 01:01; Status DC Ondansetron HCl (Zofran) 4 mg PRN Q8HRS PRN IV NAUSEA/VOMITING; Start at 01:15; Stop 04/27/17 at 01:14 Enoxaparin Sodium (Lovenox Per Pharmacy Treatment Dosing) 1 each PRN DAILY PRN MC SEE COMMENTS; Start 04/26/17 at 01:15 Enoxaparin Sodium (Lovenox 60mg Syringe) 50 mg 1X ONCE SQ Last administered on 04/26/17t 01:25; Start 04/26/17 at 01:30; Stop 04/26/17 at 01:31; Status DC Enoxaparin Sodium (Lovenox 60mg Syringe) 50 mg Q12HR SQ ; Start 04/26/17 at 09: 00 Info (Anti-Coagulation Monitoring By Pharmacy) 1 each PRN DAILY PRN MC SEE COMMENTS; Start 04/26/17 at 03:45 Aspirin (Estrella Aspirin) 325 mg DAILYWBKFT PO ; Start 04/26/17 at 11:00 Atorvastatin Calcium (Lipitor) 20 mg QHS PO ; Start 04/26/17 at 21:00 Calcium Carbonate/ Glycine (Tums) 500 mg BIDWMEALS PO ; Start 04/26/17 at 11:00 Multivitamins (Thera M Plus) 1 tab DAILY PO ; Start 04/26/17 at 11:00 Vitamin D (Vitamin D3) 1,000 unit DAILY PO ; Start 04/26/17 at 11:00 Acetaminophen (Tylenol) 500 mg PRN Q6HRS PRN PO MILD PAIN / TEMP; Start at 10:30 Magnesium Hydroxide (Milk Of Magnesia) 2,400 mg PRN DAILY PRN PO CONSTIPATION; Start 04/26/17 at 10:30 Iohexol (Omnipaque 300 Mg/ml) 75 ml 1X ONCE IV ; Start 04/26/17 at 10:30; Stop 04/26/17 at 10:31; Status UNV Active Scripts Active Fish Oil 1,000 Mg Capsule ([place]-3 Fatty Acids/Fish Oil) 1,000 Mg Capsule 1,000 Mg PO DAILY Thera-M Tablet (Multivits,Ca,Minerals/Iron/Fa) 1 Tab Tablet 1 Tab PO DAILY Tylenol (Acetaminophen) 325 Mg Tablet 650 Mg PO PRN Q6HRS PRN Reported Osteo Bi-Flex Tablet (Glucosamine/D3/Boswellia Mira) 1 Each Tablet 1 Each PO DAILY Vitamin D3 (Cholecalciferol (Vitamin D3)) 1,000 Unit Tablet 1 Tab PO DAILY Calcium (Calcium Carbonate) 500 Mg Tablet 500 Mg PO BID Prolia (Denosumab) 60 Mg/1 Ml Disp.syrin 60 Mg SQ [id number] Aspir 81 (Aspirin) 81 Mg Tablet.dr 1 Tab PO DAILY Atorvastatin Calcium 20 Mg Tablet 1 Tab PO DAILY Allergies Allergies: Coded Allergies: No Known Drug Allergies (Unverified , 03/01/17) ROS Review of System Negative for fevers, chills, weight loss, shortness of breath, chest pain, indigestion, hematochezia, melena, dysuria. Full 14-point review systems is negative. Physical Exam Physical Examination PHYSICAL EXAMINATION: Vital signs: see above. General appearance is normal and in no acute distress. HEENT: Normocephalic and nontraumatic. Eyes, nose, ears, and throat are unremarkable. Neck is supple. No lymphadenopathy. No bruits are heard over the carotid artery. No crepitus. NEUROLOGICAL EXAMINATION: Mental Status Examination: Alert. Oriented to time, place, and person. Answers questions and follows commends. Pupils are equal round and reactive to light and accommodation. Extraocular movements are intact. Visual field exam shows no defect on the direct confrontation. Slight right central facial weakness. Uvula in the midline and the soft palate elevated symmetrically. No deviation of the tongue to any direction. Gross hearing is normal. Shoulder shrug normal. Muscle tone is normal. Muscle strength is 5. Deep tendon reflexes are 2+ all around. Plantar reflex is with flexion response bilaterally. Finger -to-nose test performance is accurate. Alternative movements are accurate. Gait is a little ataxic. Sensory exam shows no deficits. No cerebellar signs are elicited. Vitals VITALS Vital Signs Date Time Temp Pulse Resp B/P (MAP) Pulse Ox O2 Delivery O2 Flow Rate FiO2 04/26/17 07:00 97.8 62 19 133/64 (87) 95 Room Air 97.8 Labs Labs Laboratory Tests Test 04/25/17 22:17 04/26/17 00:02 04/26/17 07:08 White Blood Count 6.5 x10^3/uL (4.0-11.0) Red Blood Count 4.06 x10^6/uL (3.50-5.40) Hemoglobin 13.6 g/dL (12.0-15.5) Hematocrit 40.8 % (36.0-47.0) Mean Corpuscular Volume 100 fL (79-100) Mean Corpuscular Hemoglobin 33 pg (25-35) Mean Corpuscular Hemoglobin Concent 33 g/dL (31-37) Red Cell Distribution Width 14.8 % (11.5-14.5) Platelet Count 121 x10^3/uL (140-400) Neutrophils (%) (Auto) 52 % (31-73) Lymphocytes (%) (Auto) 30 % (24-48) Monocytes (%) (Auto) 12 % (0-9) Eosinophils (%) (Auto) 5 % (0-3) Basophils (%) (Auto) 1 % (0-3) Neutrophils # (Auto) 3.3 x10^3uL (1.8-7.7) Lymphocytes # (Auto) 2.0 x10^3/uL (1.0-4.8) Monocytes # (Auto) 0.8 x10^3/uL (0.0-1.1) Eosinophils # (Auto) 0.3 x10^3/uL (0.0-0.7) Basophils # (Auto) 0.1 x10^3/uL (0.0-0.2) Prothrombin Time 12.0 SEC (11.7-14.0) Prothromb Time International Ratio 0.9 (0.8-1.1) Sodium Level 143 mmol/L (136-145) Potassium Level 4.1 mmol/L (3.5-5.1) Chloride Level 106 mmol/L (98-107) Carbon Dioxide Level 30 mmol/L (21-32) Anion Gap 7 (6-14) Blood Urea Nitrogen 21 mg/dL (7-20) Creatinine 0.7 mg/dL (0.6-1.0) Estimated GFR (Cockcroft-Gault) 79.3 Glucose Level 103 mg/dL (70-99) Lactic Acid Level 1.6 mmol/L (0.4-2.0) Calcium Level 8.8 mg/dL (8.5-10.1) Magnesium Level 2.1 mg/dL (1.8-2.4) Total Bilirubin 0.4 mg/dL (0.2-1.0) Direct Bilirubin 0.1 mg/dL (0.0-0.2) Aspartate Amino Transf (AST/SGOT) 41 U/L (15-37) Alanine Aminotransferase (ALT/SGPT) 35 U/L (14-59) Alkaline Phosphatase 94 U/L (46-116) Creatine Kinase 78 U/L (26-192) Creatine Kinase MB (Mass) 6.2 ng/mL (0.0-3.6) Creatine Kinase MB Relative Index 7.9 % (0-4) Troponin I Quantitative 0.615 ng/mL (0.000-0.055) 1.711 ng/mL (0.000-0.055) WX-Bjq-D-Type Natriuretic Peptide 1557 pg/mL (0-449) Total Protein 6.8 g/dL (6.4-8.2) Albumin 3.5 g/dL (3.4-5.0) Thyroid Stimulating Hormone (TSH) 6.370 uIU/mL (0.358-3.74) Urine Collection Type Unknown Urine Color Yellow Urine Clarity Clear Urine pH 6.5 Urine Specific [place] <=1.005 Urine Protein Negative mg/dL (NEG-TRACE) Urine Glucose (UA) Negative mg/dL (NEG) Urine Ketones (Stick) Negative mg/dL (NEG) Urine Blood Negative (NEG) Urine Nitrite Negative (NEG) Urine Bilirubin Negative (NEG) Urine Urobilinogen Dipstick 0.2 mg/dL (0.2 mg/dL) Urine Leukocyte Esterase Trace (NEG) Urine RBC Occ /HPF (0-2) Urine WBC 11-20 /HPF (0-4) Urine Squamous Epithelial Cells None /LPF Urine Bacteria Many /HPF (0-FEW) Urine Opiates Screen Neg (NEG) Urine Methadone Screen Neg (NEG) Urine Barbiturates Neg (NEG) Urine Phencyclidine Screen Neg (NEG) Urine Amphetamine/Methamphetamine Neg (NEG) Urine Benzodiazepines Screen Neg (NEG) Urine Cocaine Screen Neg (NEG) Urine Cannabinoids Screen Neg (NEG) Urine Ethyl Alcohol Neg (NEG) Triglycerides Level 42 mg/dL (0-150) Cholesterol Level 165 mg/dL (0-200) LDL Cholesterol, Calculated 81 mg/dL (0-100) VLDL Cholesterol, Calculated 8 mg/dL (0-40) Non-HDL Cholesterol Calculated 89 mg/dL (0-129) HDL Cholesterol 76 mg/dL (40-60) Cholesterol/HDL Ratio 2.2 Laboratory Tests Test 04/25/17 22:17 04/26/17 00:02 04/26/17 07:08 White Blood Count 6.5 x10^3/uL (4.0-11.0) Red Blood Count 4.06 x10^6/uL (3.50-5.40) Hemoglobin 13.6 g/dL (12.0-15.5) Hematocrit 40.8 % (36.0-47.0) Mean Corpuscular Volume 100 fL (79-100) Mean Corpuscular Hemoglobin 33 pg (25-35) Mean Corpuscular Hemoglobin Concent 33 g/dL (31-37) Red Cell Distribution Width 14.8 % (11.5-14.5) Platelet Count 121 x10^3/uL (140-400) Neutrophils (%) (Auto) 52 % (31-73) Lymphocytes (%) (Auto) 30 % (24-48) Monocytes (%) (Auto) 12 % (0-9) Eosinophils (%) (Auto) 5 % (0-3) Basophils (%) (Auto) 1 % (0-3) Neutrophils # (Auto) 3.3 x10^3uL (1.8-7.7) Lymphocytes # (Auto) 2.0 x10^3/uL (1.0-4.8) Monocytes # (Auto) 0.8 x10^3/uL (0.0-1.1) Eosinophils # (Auto) 0.3 x10^3/uL (0.0-0.7) Basophils # (Auto) 0.1 x10^3/uL (0.0-0.2) Prothrombin Time 12.0 SEC (11.7-14.0) Prothromb Time International Ratio 0.9 (0.8-1.1) Sodium Level 143 mmol/L (136-145) Potassium Level 4.1 mmol/L (3.5-5.1) Chloride Level 106 mmol/L (98-107) Carbon Dioxide Level 30 mmol/L (21-32) Anion Gap 7 (6-14) Blood Urea Nitrogen 21 mg/dL (7-20) Creatinine 0.7 mg/dL (0.6-1.0) Estimated GFR (Cockcroft-Gault) 79.3 Glucose Level 103 mg/dL (70-99) Lactic Acid Level 1.6 mmol/L (0.4-2.0) Calcium Level 8.8 mg/dL (8.5-10.1) Magnesium Level 2.1 mg/dL (1.8-2.4) Total Bilirubin 0.4 mg/dL (0.2-1.0) Direct Bilirubin 0.1 mg/dL (0.0-0.2) Aspartate Amino Transf (AST/SGOT) 41 U/L (15-37) Alanine Aminotransferase (ALT/SGPT) 35 U/L (14-59) Alkaline Phosphatase 94 U/L (46-116) Creatine Kinase 78 U/L (26-192) Creatine Kinase MB (Mass) 6.2 ng/mL (0.0-3.6) Creatine Kinase MB Relative Index 7.9 % (0-4) Troponin I Quantitative 0.615 ng/mL (0.000-0.055) 1.711 ng/mL (0.000-0.055) PT-Emd-D-Type Natriuretic Peptide 1557 pg/mL (0-449) Total Protein 6.8 g/dL (6.4-8.2) Albumin 3.5 g/dL (3.4-5.0) Thyroid Stimulating Hormone (TSH) 6.370 uIU/mL (0.358-3.74) Urine Collection Type Unknown Urine Color Yellow Urine Clarity Clear Urine pH 6.5 Urine Specific [place] <=1.005 Urine Protein Negative mg/dL (NEG-TRACE) Urine Glucose (UA) Negative mg/dL (NEG) Urine Ketones (Stick) Negative mg/dL (NEG) Urine Blood Negative (NEG) Urine Nitrite Negative (NEG) Urine Bilirubin Negative (NEG) Urine Urobilinogen Dipstick 0.2 mg/dL (0.2 mg/dL) Urine Leukocyte Esterase Trace (NEG) Urine RBC Occ /HPF (0-2) Urine WBC 11-20 /HPF (0-4) Urine Squamous Epithelial Cells None /LPF Urine Bacteria Many /HPF (0-FEW) Urine Opiates Screen Neg (NEG) Urine Methadone Screen Neg (NEG) Urine Barbiturates Neg (NEG) Urine Phencyclidine Screen Neg (NEG) Urine Amphetamine/Methamphetamine Neg (NEG) Urine Benzodiazepines Screen Neg (NEG) Urine Cocaine Screen Neg (NEG) Urine Cannabinoids Screen Neg (NEG) Urine Ethyl Alcohol Neg (NEG) Triglycerides Level 42 mg/dL (0-150) Cholesterol Level 165 mg/dL (0-200) LDL Cholesterol, Calculated 81 mg/dL (0-100) VLDL Cholesterol, Calculated 8 mg/dL (0-40) Non-HDL Cholesterol Calculated 89 mg/dL (0-129) HDL Cholesterol 76 mg/dL (40-60) Cholesterol/HDL Ratio 2.[address] head: Findings: The ventricles are appropriate in size, shape, and location for the patient's age. No obvious intracranial mass, mass-effect, midline shift, hemorrhage or obvious acute infarction is identified. Basilar cisterns are patent. Patchy, nonspecific white matter low-attenuation is seen, probably from chronic microvascular ischemic disease. Bone windows demonstrate no acute calvarial abnormality. The visualized paranasal sinuses appear clear. Impression: No acute intracranial process. Please note that CT can be relatively insensitive to acute ischemic infarction for up to 24 hours after symptom onset. CTA head and neck: CT angiography neck findings: Three-vessel aortic arch. Ostium of the innominate artery from the aorta is outside the [id number]. Codominant vertebral arteries demonstrate no plaque, dissection, stenosis or occlusion. Minimal calcified plaque prevertebral right subclavian artery without stenosis. Left carotid artery demonstrates tortuosity of the proximal common carotid and thoracic inlet, there is a internal carotid artery tonsillar loop, no plaque, dissection, stenosis or occlusion. Right carotid artery demonstrates internal carotid artery tonsillar loop, no plaque dissection, stenosis or occlusion. Mild bilateral apical fibrosis. Left upper lobe calcified granuloma. Cervical disc osteophytes and facet osteophytes with multilevel spinal canal and neural foraminal stenoses. Intracranial CT angiogram findings: Posterior circulation demonstrates a combined trunk of the left anterior inferior and posterior inferior cerebellar arteries. Asymmetric heterogeneous diminished contrast enhancement of the left posterior inferior cerebellar artery could be indicative of stenotic disease no discrete filling defect or occlusion. Anterior circulation demonstrates calcified plaque of the cavernous carotid arteries with no stenosis. Ophthalmic arteries demonstrate patent enhancement. A patent anterior communicating artery. No intracranial arterial filling defect, stenosis, occlusion or aneurysm. Developmental venous anomaly left cerebellum. CT angiography neck impression: No plaque, stenosis or occlusion of the cervical carotid and vertebral arteries. Cervical disc disease. Intracranial CT angiogram impression: Multifocal stenoses of the left posterior inferior cerebellar artery may be due to plaque. No intra-arterial thromboembolus, occlusion or aneurysm. Assessment/Plan Assessment/Plan Impression: Suspect brainstem stroke, but since symptoms had resolved by the time the patient reach the emergency department, she was not an alteplase candidate. She already had her CT angiogram, which shows left posterior inferior cerebellar artery stenosis Recommendations: She cannot have a brain MRI due to pacemaker Echocardiogram Repeat head CT tomorrow Rehabilitation modalities Agree with increased aspirin dose from 81 mg daily at home to 325 mg daily here. Continue statin, await lipid profile Treatment and workup of elevated troponin Thank you for letting me help with the patient's care. HARSH HILLIARD MD Apr 26, 2017 10:42
[2017-04-26] MEDS ORDERED: CONTRAST GIVEN MC PRN (10:45)
[2017-04-26] MEDS: MULTIVITAMIN with MINERAL TABLET. PO SCH (10:45)
[2017-04-26] MEDS: CHOLECALCIFEROL (VITAMIN D3) 1,000 UNIT TABLET PO SCH (10:45)
[2017-04-26] MEDS: CALCIUM CARBONATE 500 MG TAB.CHEW PO SCH ×2 (10:46→17:00)
[2017-04-26] MEDS: ASPIRIN 325 MG TABLET PO SCH (10:46)
--- NOTE | 2017-04-26 11:16 | HP ---
ADMIT DATE: 04/26/2017 LOCATION: She is in room 256. HISTORY OF PRESENT ILLNESS: The patient is an 86-year-old white female with history of hyperlipidemia and osteoporosis who was admitted to [facility] through the Emergency Room on 04/25/2017 when she noted the onset of swaying in the room last night when she was visiting her son and noted that she could not lift her right or left leg up and lasted for a while and then, she was able to shuffle her feet. The patient eventually drove herself to the [facility] Emergency Room and by the time she got to the Emergency Room, there was no focal weakness. She did complain of some numbness in the upper extremities this morning. She denied any chest pain. Her troponin levels noted to be elevated. She complains that she had an aneurysm of her brain in . She had some evaluation in the Emergency Room and initial CAT scan of the head was negative. Chest x-ray was unremarkable. Had a CAT scan of the head and neck angiogram, which showed no stenosis or plaque of the cervical, carotid or vertebral arteries; however, she did have multifocal stenosis on the left posterior inferior cerebellar artery. No aneurysms were seen. The patient was started on Lovenox b.i.d. in the Emergency Room and received an aspirin. She does take atorvastatin for hyperlipidemia and has a history of osteoporosis, treated with Prolia. She is therefore admitted for further evaluation of her troponin elevation and neurologic symptoms have eventually resolved. She denies any low back pain. ALLERGIES AND INTOLERANCES: None. MEDICATIONS: Prior to admission include aspirin 81 mg every day, atorvastatin 20 mg every day, calcium carbonate 500 mg b.i.d., vitamin D 1000 units every day, fish oil 1 g daily, glucosamine 500 mg every day, multiple vitamin once a day and Prolia 60 mg subQ every 6 months. PAST MEDICAL HISTORY: Significant for osteoporosis, hyperlipidemia, hypertension, osteoarthritis. She passed a kidney stone, underwent left breast biopsy in 1974. She had repair of 2 ventral abdominal hernias in 02/2017. She had an echocardiogram done on 12/11/2015 which showed moderate aortic stenosis and [id number] mitral regurgitation, mild to moderate pulmonary hypertension, mild to moderate tricuspid regurgitation with a left ventricular ejection fraction of 50%-55%. SOCIAL HISTORY: She does not drink alcohol nor she smokes cigarettes. FAMILY HISTORY: Not contributory. REVIEW OF SYSTEMS: GENERAL: She denies any fever, chills or sweats. CARDIOVASCULAR: No chest pain. PULMONARY: No cough or shortness of breath. GASTROINTESTINAL: No constipation. SKIN: No rashes. NEUROLOGIC: She had no weakness in the legs and numbness in the hand last night, numbness in upper extremities this morning. SKIN: No rashes. ENDOCRINE: No diabetes mellitus. Rest of systems reviewed are negative except as stated in history of present illness. PHYSICAL EXAMINATION: VITAL SIGNS: The temperature is 97.8 degrees, pulse 62, respiratory rate 19, blood pressure 133/64, oxygen saturation 95% on room air. HEENT: Eyes: Gaze is conjugate. Extraocular muscles are intact. Mouth: Tongue is midline. NECK: There is no cervical lymphadenopathy or thyroid enlargement. HEART: Reveals an S1, S2. There is no S3 or murmur. LUNGS: Clear. ABDOMEN: Soft, nontender. EXTREMITIES: Lower extremities without edema. Dorsalis pedis pulses 2+ bilaterally. NEUROLOGIC: She is coherent with no focal weakness in the arms or legs, [id number] testing is normal bilaterally. SKIN: No rashes. LABORATORY DATA: White count 6.5, hemoglobin 13.6, platelet count 121,000, 53 polys and 30 lymphocytes. INR of 0.9. The cholesterol was 165, LDL cholesterol 81, HDL cholesterol was 76. TSH was increased to 6.3, troponin level is 0.6, increasing to 1.7 this morning, lactic acid level was 1.6. Her magnesium was 2.1. Liver function tests were okay except for an SGOT of 41, albumin 3.5. Blood sugar was 103, proBNP was 1557. The CPK-MB index was increased to 7.9. IMPRESSION: 1. Non-ST segment elevated myocardial infarction based on elevated troponin level. 2. Bilateral lower extremity weakness, which resolved with some numbness in upper extremities this morning. 3. 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 4. Hyperlipidemia. 5. Osteoporosis. PLAN: At this time, she has consulted Cardiology and the nurse practitioner has already seen her. An echocardiogram has been ordered. We will also consult Neurology. We will see if she needs to be on b.i.d. Lovenox that was ordered by the Emergency Room. The nurse will contact the neurologist and veneer redrier to see if that needs to be continued or it can be discontinued. Continue her aspirin. I have ordered her atorvastatin. Continue with calcium and vitamin D. We will also start her on some physical and occupational therapy and we will also wait for neurologist input. Again, we will continue with the aspirin and atorvastatin. Wait for the echocardiogram and repeat her labs again tomorrow. We will increase her aspirin to 325 mg every day. BASIL APARICIO MD DR: BETH/mary jo JOB#: [id number] / [id number]
--- NOTE | 2017-04-26 16:15 | CARD ---
APPROVED REPORT EXAM: Two-dimensional and M-mode echocardiogram with Doppler and color Doppler. INDICATION Chest Pain Elevated trop 2D DIMENSIONS Left Atrium(2D)4.3 (1.6-4.0cm)IVSd1.1 (0.7-1.1cm) Aortic Root(2D)3.2 (2.0-3.7cm)LVDd4.7 (3.9-5.9cm) LVOT Diameter2.0 (1.8-2.4cm)PWd1.1 (0.7-1.1cm) LVDs3.1 (2.5-4.0cm)FS (%) 32.9 % SV61.7 mlLVEF(%)61.3 (>50%) Aortic Valve AoV Peak Jack.338.8cm/sAoV VTI71.1cm AO Peak GR.45.9mmHgLVOT Peak Jack.83.5cm/s AO Mean GR.28mmHg Mitral Valve MV E Ahvfnhsf408.9cm/sMV E Peak Gr.12mmHg MV DECEL [id number] A Ebkdidni505.4cm/s MV E Mean Gr.4mmHgE/A Ratio1.2 Tricuspid Valve TR P. [id number] [id number] TR Peak Gr.[id number] LEFT VENTRICLE The left ventricle is normal size. Sigmoid septum noted. There is borderline to mild concentric left ventricular hypertrophy. The left ventricular systolic function is normal. The Ejection Fraction is 5 5-60%. There is normal LV segmental wall motion. Transmitral Doppler flow pattern is Grade I-abnormal relaxation pattern. RIGHT VENTRICLE The right ventricle is normal size. The right ventricular systolic function is normal. ATRIA The left atrium is moderately dilated. The right atrium is mildly dilated. Possible mobile interatria l septum present. AORTIC VALVE The aortic valve is calcified and displays decreased opening. Doppler and Color Flow revealed mild ao rtic regurgitation. There is moderate valvular aortic stenosis. Calculated aortic valve area is 0.8 c m2 with maximum pressure gradient of 46 mmHg and mean pressure gradient of 28 mmHg. MITRAL VALVE The mitral valve is moderately thickened. The posterior mitral valve leaflet appears to be moderately prolapsed. There is no mitral valve stenosis. Doppler and Color-flow revealed moderate mitral regurg itation. TRICUSPID VALVE The tricuspid valve is normal in structure and function. Doppler and Color Flow revealed mild to mode rate tricuspid regurgitation. There is moderate pulmonary hypertension. The PA pressure was estimated at 40 mmHg. There is no tricuspid valve stenosis. PULMONIC VALVE The pulmonic valve is mildly thickened. Doppler and Color Flow revealed mild pulmonic valvular regurg itation. There is no pulmonic valvular stenosis. GREAT VESSELS The aortic root is normal in size. The ascending aorta is normal in size. The IVC is normal in size a nd collapses >50% with inspiration. PERICARDIAL EFFUSION There is no pleural effusion. There is no evidence of significant pericardial effusion. Critical Notification Critical Value: No <Conclusion> The left ventricular systolic function is normal. The Ejection Fraction is 55-60%. There is normal LV segmental wall motion. Transmitral Doppler flow pattern is Grade I-abnormal relaxation pattern. The left atrium is moderately dilated. There is moderate valvular aortic stenosis with mean pressure gradient of 28 mmHg. The posterior mitral valve leaflet appears to be moderately prolapsed. Moderate mitral regurgitation. Mild to moderate tricuspid regurgitation. There is moderate pulmonary hypertension woth PAP 40 mmHg. There is no evidence of significant pericardial effusion.
[2017-04-26] MEDS: ATORVASTATIN CALCIUM 20 MG TABLET PO SCH (21:09)
[2017-04-27 03:00] VITALS: BP 137/76
[2017-04-27 04:22] LABS: BASO # 0.1 x10^3/uL (0.0-0.2); BASO % 1 % (0-3); EOS % 6 % (0-3); HEMATOCRIT 41.1 % (36.0-47.0); HEMOGLOBIN 13.7 g/dL (12.0-15.5); LYMPH # 1.6 x10^3/uL (1.0-4.8); LYMPH % 28 % (24-48); MEAN CORPUSCULAR HEMOGLOBIN 33 pg (25-35); MEAN CORPUSCULAR HGB CONC 33 g/dL (31-37); MEAN CORPUSCULAR VOLUME 99 fL (79-100); MONO % 13 % (0-9); NEUT % 52 % (31-73); PLATELET COUNT 117 x10^3/uL (140-400); RED BLOOD COUNT 4.15 x10^6/uL (3.50-5.40); RED CELL DISTRIBUTION WIDTH 14.7 % (11.5-14.5); WHITE BLOOD COUNT 5.6 x10^3/uL (4.0-11.0)
[2017-04-27 04:38] LABS: CALCIUM 7.9 mg/dL (8.5-10.1); CREATININE 0.6 mg/dL (0.6-1.0); GFR 94.8; POTASSIUM 3.4 mmol/L (3.5-5.1)
[2017-04-27 07:00] VITALS: BP 126/77
[2017-04-27] MEDS: CALCIUM CARBONATE 500 MG TAB.CHEW PO SCH ×2 (08:00→17:00)
--- NOTE | 2017-04-27 08:52 | PDOC ---
PROGRESS NOTES Assessment Problems Medical Problems: (1) Elevated troponin Status: Acute Suspect brainstem stroke Left posterior inferior cerebellar artery stenosis Plan Cardiac workup Repeat head CT today Rehabilitation modalities Aspirin dose 325 mg daily Continue statin Outpatient PT Possibly home later today Subjective still a little unsteady walking Objective Vital Signs Date Time Temp Pulse Resp B/P (MAP) Pulse Ox O2 Delivery O2 Flow Rate FiO2 04/27/17 03:00 98.1 96 17 137/76 (96) 96 Room Air 98.1 PHYSICAL EXAM Alert. Oriented to time, place and person. PERRL. EOMI. CN: no focal findings. Muscle tone: normal. Muscle strength: 5/5 DTR: 1+ Plantar reflex: flexor Gait: slight ataxia Sensory exam: no abnormal findings. No appendicular cerebellar signs elicited. Review of Relevant I have reviewed the following items bettie (where applicable) has been applied. Labs Laboratory Tests Test 04/25/17 22:17 04/26/17 00:02 04/26/17 07:08 04/26/17 13:00 White Blood Count 6.5 x10^3/uL (4.0-11.0) Red Blood Count 4.06 x10^6/uL (3.50-5.40) Hemoglobin 13.6 g/dL (12.0-15.5) Hematocrit 40.8 % (36.0-47.0) Mean Corpuscular Volume 100 fL (79-100) Mean Corpuscular Hemoglobin 33 pg (25-35) Mean Corpuscular Hemoglobin Concent 33 g/dL (31-37) Red Cell Distribution Width 14.8 % (11.5-14.5) Platelet Count 121 x10^3/uL (140-400) Neutrophils (%) (Auto) 52 % (31-73) Lymphocytes (%) (Auto) 30 % (24-48) Monocytes (%) (Auto) 12 % (0-9) Eosinophils (%) (Auto) 5 % (0-3) Basophils (%) (Auto) 1 % (0-3) Neutrophils # (Auto) 3.3 x10^3uL (1.8-7.7) Lymphocytes # (Auto) 2.0 x10^3/uL (1.0-4.8) Monocytes # (Auto) 0.8 x10^3/uL (0.0-1.1) Eosinophils # (Auto) 0.3 x10^3/uL (0.0-0.7) Basophils # (Auto) 0.1 x10^3/uL (0.0-0.2) Prothrombin Time 12.0 SEC (11.7-14.0) Prothromb Time International Ratio 0.9 (0.8-1.1) Sodium Level 143 mmol/L (136-145) Potassium Level 4.1 mmol/L (3.5-5.1) Chloride Level 106 mmol/L (98-107) Carbon Dioxide Level 30 mmol/L (21-32) Anion Gap 7 (6-14) Blood Urea Nitrogen 21 mg/dL (7-20) Creatinine 0.7 mg/dL (0.6-1.0) Estimated GFR (Cockcroft-Gault) 79.3 Glucose Level 103 mg/dL (70-99) Lactic Acid Level 1.6 mmol/L (0.4-2.0) Calcium Level 8.8 mg/dL (8.5-10.1) Magnesium Level 2.1 mg/dL (1.8-2.4) Total Bilirubin 0.4 mg/dL (0.2-1.0) Direct Bilirubin 0.1 mg/dL (0.0-0.2) Aspartate Amino Transf (AST/SGOT) 41 U/L (15-37) Alanine Aminotransferase (ALT/SGPT) 35 U/L (14-59) Alkaline Phosphatase 94 U/L (46-116) Creatine Kinase 78 U/L (26-192) Creatine Kinase MB (Mass) 6.2 ng/mL (0.0-3.6) Creatine Kinase MB Relative Index 7.9 % (0-4) Troponin I Quantitative 0.615 ng/mL (0.000-0.055) 1.711 ng/mL (0.000-0.055) 1.293 ng/mL (0.000-0.055) DY-Itq-Z-Type Natriuretic Peptide 1557 pg/mL (0-449) Total Protein 6.8 g/dL (6.4-8.2) Albumin 3.5 g/dL (3.4-5.0) Thyroid Stimulating Hormone (TSH) 6.370 uIU/mL (0.358-3.74) Urine Collection Type Unknown Urine Color Yellow Urine Clarity Clear Urine pH 6.5 Urine Specific [place] <=1.005 Urine Protein Negative mg/dL (NEG-TRACE) Urine Glucose (UA) Negative mg/dL (NEG) Urine Ketones (Stick) Negative mg/dL (NEG) Urine Blood Negative (NEG) Urine Nitrite Negative (NEG) Urine Bilirubin Negative (NEG) Urine Urobilinogen Dipstick 0.2 mg/dL (0.2 mg/dL) Urine Leukocyte Esterase Trace (NEG) Urine RBC Occ /HPF (0-2) Urine WBC 11-20 /HPF (0-4) Urine Squamous Epithelial Cells None /LPF Urine Bacteria Many /HPF (0-FEW) Urine Opiates Screen Neg (NEG) Urine Methadone Screen Neg (NEG) Urine Barbiturates Neg (NEG) Urine Phencyclidine Screen Neg (NEG) Urine Amphetamine/Methamphetamine Neg (NEG) Urine Benzodiazepines Screen Neg (NEG) Urine Cocaine Screen Neg (NEG) Urine Cannabinoids Screen Neg (NEG) Urine Ethyl Alcohol Neg (NEG) Triglycerides Level 42 mg/dL (0-150) Cholesterol Level 165 mg/dL (0-200) LDL Cholesterol, Calculated 81 mg/dL (0-100) VLDL Cholesterol, Calculated 8 mg/dL (0-40) Non-HDL Cholesterol Calculated 89 mg/dL (0-129) HDL Cholesterol 76 mg/dL (40-60) Cholesterol/HDL Ratio 2.2 Test 04/27/17 04:00 White Blood Count 5.6 x10^3/uL (4.0-11.0) Red Blood Count 4.15 x10^6/uL (3.50-5.40) Hemoglobin 13.7 g/dL (12.0-15.5) Hematocrit 41.1 % (36.0-47.0) Mean Corpuscular Volume 99 fL (79-100) Mean Corpuscular Hemoglobin 33 pg (25-35) Mean Corpuscular Hemoglobin Concent 33 g/dL (31-37) Red Cell Distribution Width 14.7 % (11.5-14.5) Platelet Count 117 x10^3/uL (140-400) Neutrophils (%) (Auto) 52 % (31-73) Lymphocytes (%) (Auto) 28 % (24-48) Monocytes (%) (Auto) 13 % (0-9) Eosinophils (%) (Auto) 6 % (0-3) Basophils (%) (Auto) 1 % (0-3) Neutrophils # (Auto) 2.9 x10^3uL (1.8-7.7) Lymphocytes # (Auto) 1.6 x10^3/uL (1.0-4.8) Monocytes # (Auto) 0.7 x10^3/uL (0.0-1.1) Eosinophils # (Auto) 0.3 x10^3/uL (0.0-0.7) Basophils # (Auto) 0.1 x10^3/uL (0.0-0.2) Sodium Level 144 mmol/L (136-145) Potassium Level 3.4 mmol/L (3.5-5.1) Chloride Level 109 mmol/L (98-107) Carbon Dioxide Level 27 mmol/L (21-32) Anion Gap 8 (6-14) Blood Urea Nitrogen 16 mg/dL (7-20) Creatinine 0.6 mg/dL (0.6-1.0) Estimated GFR (Cockcroft-Gault) 94.8 Glucose Level 80 mg/dL (70-99) Calcium Level 7.9 mg/dL (8.5-10.1) Free Thyroxine 1.03 ng/dL (0.76-1.46) Laboratory Tests Test 04/26/17 13:00 04/27/17 04:00 Troponin I Quantitative 1.293 ng/mL (0.000-0.055) White Blood Count 5.6 x10^3/uL (4.0-11.0) Red Blood Count 4.15 x10^6/uL (3.50-5.40) Hemoglobin 13.7 g/dL (12.0-15.5) Hematocrit 41.1 % (36.0-47.0) Mean Corpuscular Volume 99 fL (79-100) Mean Corpuscular Hemoglobin 33 pg (25-35) Mean Corpuscular Hemoglobin Concent 33 g/dL (31-37) Red Cell Distribution Width 14.7 % (11.5-14.5) Platelet Count 117 x10^3/uL (140-400) Neutrophils (%) (Auto) 52 % (31-73) Lymphocytes (%) (Auto) 28 % (24-48) Monocytes (%) (Auto) 13 % (0-9) Eosinophils (%) (Auto) 6 % (0-3) Basophils (%) (Auto) 1 % (0-3) Neutrophils # (Auto) 2.9 x10^3uL (1.8-7.7) Lymphocytes # (Auto) 1.6 x10^3/uL (1.0-4.8) Monocytes # (Auto) 0.7 x10^3/uL (0.0-1.1) Eosinophils # (Auto) 0.3 x10^3/uL (0.0-0.7) Basophils # (Auto) 0.1 x10^3/uL (0.0-0.2) Sodium Level 144 mmol/L (136-145) Potassium Level 3.4 mmol/L (3.5-5.1) Chloride Level 109 mmol/L (98-107) Carbon Dioxide Level 27 mmol/L (21-32) Anion Gap 8 (6-14) Blood Urea Nitrogen 16 mg/dL (7-20) Creatinine 0.6 mg/dL (0.6-1.0) Estimated GFR (Cockcroft-Gault) 94.8 Glucose Level 80 mg/dL (70-99) Calcium Level 7.9 mg/dL (8.5-10.1) Free Thyroxine 1.03 ng/dL (0.76-1.46) Microbiology 04/26/17 Urine Culture - Preliminary, Resulted 04/26/17 Urine Culture Result 1 (CHANDRA) - Preliminary, Resulted Medications Current Medications Sodium Chloride 500 ml @ 1,000 mls/hr 1X ONCE IV Last administered on 23:55; Start 04/26/17 at 00:00; Stop 04/26/17 at 00:29; Status DC Iohexol (Omnipaque 300 Mg/ml) 75 ml 1X ONCE IV Last administered on 00:19; Start 04/26/17 at 00:30; Stop 04/26/17 at 00:31; Status DC Info (Do NOT chart on this entry -- for MONITORING) 1 each PRN DAILY PRN MC SEE COMMENTS; Start 04/25/17 at 23:45; Stop 04/27/17 at 23:44; Status Cancel Aspirin (Estrella Aspirin) 325 mg 1X ONCE PO Last administered on 04/26/17 01: 25; Start 04/26/17 at 01:00; Stop 04/26/17 at 01:01; Status DC Ondansetron HCl (Zofran) 4 mg PRN Q8HRS PRN IV NAUSEA/VOMITING; Start at 01:15; Stop 04/27/17 at 01:14; Status DC Enoxaparin Sodium (Lovenox Per Pharmacy Treatment Dosing) 1 each PRN DAILY PRN MC SEE COMMENTS; Start 04/26/17 at 01:15; Stop 04/26/17 at 17:52; Status DC Enoxaparin Sodium (Lovenox 60mg Syringe) 50 mg 1X ONCE SQ Last administered on 04/26/17 01:25; Start 04/26/17 at 01:30; Stop 04/26/17 at 01:31; Status DC Enoxaparin Sodium (Lovenox 60mg Syringe) 50 mg Q12HR SQ Last administered on 10:46; Start 04/26/17 at 09:00; Stop 04/26/17 at 10:59; Status DC Info (Anti-Coagulation Monitoring By Pharmacy) 1 each PRN DAILY PRN MC SEE COMMENTS Last administered on 04/26/17 10:55; Start 04/26/17 at 03:45; Stop 04/26/17 at 17:53; Status DC Aspirin (Estrella Aspirin) 325 mg DAILYWBKFT PO Last administered on 04/26/17 10 :46; Start 04/26/17 at 11:00 Atorvastatin Calcium (Lipitor) 20 mg QHS PO Last administered on 04/26/17 21: 09; Start 04/26/17 at 21:00 Calcium Carbonate/ Glycine (Tums) 500 mg BIDWMEALS PO ; Start 04/26/17 at 11:00 Multivitamins (Thera M Plus) 1 tab DAILY PO Last administered on 04/26/17 10: 45; Start 04/26/17 at 11:00 Vitamin D (Vitamin D3) 1,000 unit DAILY PO Last administered on 04/26/17 10: 45; Start 04/26/17 at 11:00 Acetaminophen (Tylenol) 500 mg PRN Q6HRS PRN PO MILD PAIN / TEMP; Start at 10:30 Magnesium Hydroxide (Milk Of Magnesia) 2,400 mg PRN DAILY PRN PO CONSTIPATION; Start 04/26/17 at 10:30 Iohexol (Omnipaque 300 Mg/ml) 75 ml 1X ONCE IV ; Start 04/26/17 at 10:45; Stop 04/26/17 at 10:46; Status DC Info (Do NOT chart on this entry -- for MONITORING) 1 each PRN DAILY PRN MC SEE COMMENTS; Start 04/26/17 at 10:45; Stop 04/28/17 at 10:44 Enoxaparin Sodium (Lovenox 60mg Syringe) 50 mg DAILY SQ ; Start 04/27/17 at 09: 00; Stop 04/27/17 at 09:00; Status DC Regadenoson (Lexiscan) 0.4 mg 1X ONCE IV ; Start 04/27/17 at 08:45; Stop at 08:46; Status UNV Active Scripts Active Fish Oil 1,000 Mg Capsule ([place]-3 Fatty Acids/Fish Oil) 1,000 Mg Capsule 1,000 Mg PO DAILY Thera-M Tablet (Multivits,Ca,Minerals/Iron/Fa) 1 Tab Tablet 1 Tab PO DAILY Tylenol (Acetaminophen) 325 Mg Tablet 650 Mg PO PRN Q6HRS PRN Reported Osteo Bi-Flex Tablet (Glucosamine/D3/Boswellia Mira) 1 Each Tablet 1 Each PO DAILY Vitamin D3 (Cholecalciferol (Vitamin D3)) 1,000 Unit Tablet 1 Tab PO DAILY Calcium (Calcium Carbonate) 500 Mg Tablet 500 Mg PO BID Prolia (Denosumab) 60 Mg/1 Ml Disp.syrin 60 Mg SQ [id number] Aspir 81 (Aspirin) 81 Mg Tablet. 1 Tab PO DAILY Atorvastatin Calcium 20 Mg Tablet 1 Tab PO DAILY Vitals/I & O Vital Sign - Last 24 Hours 04/26/17 04/26/17 04/26/17 04/26/17 11:00 15:00 19:15 19:54 Temp 97.6 97.6 97.7 97.6 97.6 97.7 Pulse 68 63 70 Resp 19 18 B/P (MAP) 139/72 (94) 128/76 (93) 125/76 (92) Pulse Ox 96 97 92 O2 Delivery Room Air Room Air Room Air Room Air 04/26/17 04/27/17 22:22 03:00 Temp 97.8 98.1 97.8 98.1 Pulse 108 96 Resp 18 17 B/P (MAP) 147/86 (106) 137/76 (96) Pulse Ox 96 96 O2 Delivery Room Air Room Air Images Echo: LEFT VENTRICLE The left ventricle is normal size. Sigmoid septum noted. There is borderline to mild concentric left ventricular hypertrophy. The left ventricular systolic function is normal. The Ejection Fraction is 55-60%. There is normal LV segmental wall motion. Transmitral Doppler flow pattern is Grade I-abnormal relaxation pattern. RIGHT VENTRICLE The right ventricle is normal size. The right ventricular systolic function is normal. ATRIA The left atrium is moderately dilated. The right atrium is mildly dilated. Possible mobile interatrial septum present. AORTIC VALVE The aortic valve is calcified and displays decreased opening. Doppler and Color Flow revealed mild aortic regurgitation. There is moderate valvular aortic stenosis. Calculated aortic valve area is 0.8 cm2 with maximum pressure gradient of 46 mmHg and mean pressure gradient of 28 mmHg. MITRAL VALVE The mitral valve is moderately thickened. The posterior mitral valve leaflet appears to be moderately prolapsed. There is no mitral valve stenosis. Doppler and Color-flow revealed moderate mitral regurgitation. TRICUSPID VALVE The tricuspid valve is normal in structure and function. Doppler and Color Flow revealed mild to moderate tricuspid regurgitation. There is moderate pulmonary hypertension. The PA pressure was estimated at 40 mmHg. There is no tricuspid valve stenosis. PULMONIC VALVE The pulmonic valve is mildly thickened. Doppler and Color Flow revealed mild pulmonic valvular regurgitation. There is no pulmonic valvular stenosis. GREAT VESSELS The aortic root is normal in size. The ascending aorta is normal in size. The IVC is normal in size and collapses >50% with inspiration. PERICARDIAL EFFUSION There is no pleural effusion. There is no evidence of significant pericardial effusion. Critical Notification Critical Value: No <Conclusion> The left ventricular systolic function is normal. The Ejection Fraction is 55-60%. There is normal LV segmental wall motion. Transmitral Doppler flow pattern is Grade I-abnormal relaxation pattern. The left atrium is moderately dilated. There is moderate valvular aortic stenosis with mean pressure gradient of 28 mmHg. The posterior mitral valve leaflet appears to be moderately prolapsed. Moderate mitral regurgitation. Mild to moderate tricuspid regurgitation. There is moderate pulmonary hypertension woth PAP 40 mmHg. There is no evidence of significant pericardial effusion. HARSH HILLIARD MD Apr 27, 2017 08:52
[2017-04-27] MEDS ORDERED: REGADENOSON 0.4 MG/5 ML DISP.SYRIN. IV ONE (09:15)
--- NOTE | 2017-04-27 09:36 | RAD ---
EXAM: CT head without contrast. HISTORY: Brainstem stroke. TECHNIQUE: Computed tomography of the head was performed without intravenous contrast. COMPARISON: 04/26/2017, 04/25/2017. FINDINGS: There is no intracranial hemorrhage. No clear brainstem infarct is identified by CT. Hypoattenuation within the periventricular white matter indicates moderate chronic small vessel ischemic change. Prominence of the lateral ventricles and hemispheric sulci indicate moderate atrophy. The visualized paranasal sinuses appear clear. The orbits are unremarkable. The temporal bones are unremarkable. The calvarium reveals no suspicious lesions. There are atherosclerotic calcifications of the internal carotid arteries. IMPRESSION: 1. No clear acute/subacute infarct is identified by CT. 2. Moderate atrophy and chronic small vessel ischemic white matter change. *One or more of the following individualized dose reduction techniques were utilized for this examination: 1. Automated exposure control. 2. Adjustment of the mA and/or kV according to patient size. 3. Use of iterative reconstruction technique.
--- NOTE | 2017-04-27 09:57 | PDOC ---
GABBIE GOLDEN HEATING AND BLENDING SUPERVISOR 04/27/17 0957: CARDIO Progress Notes Date and Time Date of Service 04/27/17 Time of Evaluation 0950 Subjective Subjective: No Chest Pain Vitals Vitals Vital Signs Date Time Temp Pulse Resp B/P (MAP) Pulse Ox O2 Delivery O2 Flow Rate FiO2 04/27/17 07:00 97.3 70 19 126/77 (93) 94 Room Air 97.3 Weight Weight [ ] Laboratory Labs Laboratory Tests Test 04/26/17 13:00 04/27/17 04:00 Troponin I Quantitative 1.293 ng/mL (0.000-0.055) White Blood Count 5.6 x10^3/uL (4.0-11.0) Red Blood Count 4.15 x10^6/uL (3.50-5.40) Hemoglobin 13.7 g/dL (12.0-15.5) Hematocrit 41.1 % (36.0-47.0) Mean Corpuscular Volume 99 fL (79-100) Mean Corpuscular Hemoglobin 33 pg (25-35) Mean Corpuscular Hemoglobin Concent 33 g/dL (31-37) Red Cell Distribution Width 14.7 % (11.5-14.5) Platelet Count 117 x10^3/uL (140-400) Neutrophils (%) (Auto) 52 % (31-73) Lymphocytes (%) (Auto) 28 % (24-48) Monocytes (%) (Auto) 13 % (0-9) Eosinophils (%) (Auto) 6 % (0-3) Basophils (%) (Auto) 1 % (0-3) Neutrophils # (Auto) 2.9 x10^3uL (1.8-7.7) Lymphocytes # (Auto) 1.6 x10^3/uL (1.0-4.8) Monocytes # (Auto) 0.7 x10^3/uL (0.0-1.1) Eosinophils # (Auto) 0.3 x10^3/uL (0.0-0.7) Basophils # (Auto) 0.1 x10^3/uL (0.0-0.2) Sodium Level 144 mmol/L (136-145) Potassium Level 3.4 mmol/L (3.5-5.1) Chloride Level 109 mmol/L (98-107) Carbon Dioxide Level 27 mmol/L (21-32) Anion Gap 8 (6-14) Blood Urea Nitrogen 16 mg/dL (7-20) Creatinine 0.6 mg/dL (0.6-1.0) Estimated GFR (Cockcroft-Gault) 94.8 Glucose Level 80 mg/dL (70-99) Calcium Level 7.9 mg/dL (8.5-10.1) Free Thyroxine 1.03 ng/dL (0.76-1.46) Microbiology Micro Microbiology 04/26/17 Urine Culture - Preliminary, Resulted 04/26/17 Urine Culture Result 1 (CHANDRA) - Preliminary, Resulted Physical Exam HEENT: Neck Supple W Full Motion Chest: Symmetric LUNGS: Clear to Auscultation Heart: S1S2, RRR, murmurs (2/6 systolic murmur ) Abdomen: Soft N/T Extremities: No Edema Neurology: alert, oriented, follow commands Assessment Assessment 1. NSTEMI; highest 1.7. CP free. Echo showed preserved LV function with moderate , moderate MR, and moderate pulmHTN 2. Hypertension; well-controlled 3. Hyperlipidemia; LDL 81. statin 4. Possible CVA; CT angiogram notable for left posterior cerebellar artery stenosis. PT/OT. neurology following 5. PPM in situ (Biotronik); device check with normal function- no acute events noted. DAVID set to 150BPM and HVR to 155BPM 6. Hypokalemia; replaced. check Mg- replace as warranted Recommendations MPI underway today to r/o ischemia Continue ASA and statin. Add low-dose BB. PT/OT Supportive care. ARA KRAMER MD 04/27/17 1632: CARDIO Progress Notes Assessment Assessment Patient seen and examined. Agree with OFFICE CLERK ASSISTANT's assessment and plan. Lexiscan nuclear stress test did not show any significant ischemia. Continue medical management. Follow-up with our office in 1 month. GABBIE GOLDEN APRN Apr 27, 2017 09:57 ARA KRAMER MD Apr 27, 2017 16:32
[2017-04-27] MEDS ORDERED: POTASSIUM CHLORIDE 20 MEQ TABLET.ER. PO ONE (10:15)
--- NOTE | 2017-04-27 10:19 | PDOC ---
PROGRESS NOTES Subjective Subjective had problems walking with right leg earlier today. finishing MPI. denies chest pain or shortness of breath. potassium low 3.4. echo okay. ct head negative Objective Objective Vital Signs Date Time Temp Pulse Resp B/P (MAP) Pulse Ox O2 Delivery O2 Flow Rate FiO2 04/27/17 07:00 97.3 70 19 126/77 (93) 94 Room Air 97.3 Physical Exam Abdomen: Soft Heart: Regular rate, Normal S1, Normal S2 Extremities: No edema General: Alert HEENT: Atraumatic Lungs: Clear to auscultation Neuro: Normal speech, Other (no focial weakness) Psych/Mental Status: Mental status NL Skin: No rashes Assessment Assessment Problems1. NSTEMI 2. 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 4. Hyperlipidemia. 5. Osteoporosis. hypokalemia Medical Problems: (1) Elevated troponin Status: Acute Plan Plan of Care await MPI results PT and OT continue aspirin continue atorvastatin replete kcl lab tomorrow Comment Review of Relevant I have reviewed the following items bettie (where applicable) has been applied. Labs Laboratory Tests Test 04/25/17 22:17 04/26/17 00:02 04/26/17 07:08 04/26/17 13:00 White Blood Count 6.5 x10^3/uL (4.0-11.0) Red Blood Count 4.06 x10^6/uL (3.50-5.40) Hemoglobin 13.6 g/dL (12.0-15.5) Hematocrit 40.8 % (36.0-47.0) Mean Corpuscular Volume 100 fL (79-100) Mean Corpuscular Hemoglobin 33 pg (25-35) Mean Corpuscular Hemoglobin Concent 33 g/dL (31-37) Red Cell Distribution Width 14.8 % (11.5-14.5) Platelet Count 121 x10^3/uL (140-400) Neutrophils (%) (Auto) 52 % (31-73) Lymphocytes (%) (Auto) 30 % (24-48) Monocytes (%) (Auto) 12 % (0-9) Eosinophils (%) (Auto) 5 % (0-3) Basophils (%) (Auto) 1 % (0-3) Neutrophils # (Auto) 3.3 x10^3uL (1.8-7.7) Lymphocytes # (Auto) 2.0 x10^3/uL (1.0-4.8) Monocytes # (Auto) 0.8 x10^3/uL (0.0-1.1) Eosinophils # (Auto) 0.3 x10^3/uL (0.0-0.7) Basophils # (Auto) 0.1 x10^3/uL (0.0-0.2) Prothrombin Time 12.0 SEC (11.7-14.0) Prothromb Time International Ratio 0.9 (0.8-1.1) Sodium Level 143 mmol/L (136-145) Potassium Level 4.1 mmol/L (3.5-5.1) Chloride Level 106 mmol/L (98-107) Carbon Dioxide Level 30 mmol/L (21-32) Anion Gap 7 (6-14) Blood Urea Nitrogen 21 mg/dL (7-20) Creatinine 0.7 mg/dL (0.6-1.0) Estimated GFR (Cockcroft-Gault) 79.3 Glucose Level 103 mg/dL (70-99) Lactic Acid Level 1.6 mmol/L (0.4-2.0) Calcium Level 8.8 mg/dL (8.5-10.1) Magnesium Level 2.1 mg/dL (1.8-2.4) Total Bilirubin 0.4 mg/dL (0.2-1.0) Direct Bilirubin 0.1 mg/dL (0.0-0.2) Aspartate Amino Transf (AST/SGOT) 41 U/L (15-37) Alanine Aminotransferase (ALT/SGPT) 35 U/L (14-59) Alkaline Phosphatase 94 U/L (46-116) Creatine Kinase 78 U/L (26-192) Creatine Kinase MB (Mass) 6.2 ng/mL (0.0-3.6) Creatine Kinase MB Relative Index 7.9 % (0-4) Troponin I Quantitative 0.615 ng/mL (0.000-0.055) 1.711 ng/mL (0.000-0.055) 1.293 ng/mL (0.000-0.055) FA-Fad-G-Type Natriuretic Peptide 1557 pg/mL (0-449) Total Protein 6.8 g/dL (6.4-8.2) Albumin 3.5 g/dL (3.4-5.0) Thyroid Stimulating Hormone (TSH) 6.370 uIU/mL (0.358-3.74) Urine Collection Type Unknown Urine Color Yellow Urine Clarity Clear Urine pH 6.5 Urine Specific [place] <=1.005 Urine Protein Negative mg/dL (NEG-TRACE) Urine Glucose (UA) Negative mg/dL (NEG) Urine Ketones (Stick) Negative mg/dL (NEG) Urine Blood Negative (NEG) Urine Nitrite Negative (NEG) Urine Bilirubin Negative (NEG) Urine Urobilinogen Dipstick 0.2 mg/dL (0.2 mg/dL) Urine Leukocyte Esterase Trace (NEG) Urine RBC Occ /HPF (0-2) Urine WBC 11-20 /HPF (0-4) Urine Squamous Epithelial Cells None /LPF Urine Bacteria Many /HPF (0-FEW) Urine Opiates Screen Neg (NEG) Urine Methadone Screen Neg (NEG) Urine Barbiturates Neg (NEG) Urine Phencyclidine Screen Neg (NEG) Urine Amphetamine/Methamphetamine Neg (NEG) Urine Benzodiazepines Screen Neg (NEG) Urine Cocaine Screen Neg (NEG) Urine Cannabinoids Screen Neg (NEG) Urine Ethyl Alcohol Neg (NEG) Triglycerides Level 42 mg/dL (0-150) Cholesterol Level 165 mg/dL (0-200) LDL Cholesterol, Calculated 81 mg/dL (0-100) VLDL Cholesterol, Calculated 8 mg/dL (0-40) Non-HDL Cholesterol Calculated 89 mg/dL (0-129) HDL Cholesterol 76 mg/dL (40-60) Cholesterol/HDL Ratio 2.2 Test 04/27/17 04:00 White Blood Count 5.6 x10^3/uL (4.0-11.0) Red Blood Count 4.15 x10^6/uL (3.50-5.40) Hemoglobin 13.7 g/dL (12.0-15.5) Hematocrit 41.1 % (36.0-47.0) Mean Corpuscular Volume 99 fL (79-100) Mean Corpuscular Hemoglobin 33 pg (25-35) Mean Corpuscular Hemoglobin Concent 33 g/dL (31-37) Red Cell Distribution Width 14.7 % (11.5-14.5) Platelet Count 117 x10^3/uL (140-400) Neutrophils (%) (Auto) 52 % (31-73) Lymphocytes (%) (Auto) 28 % (24-48) Monocytes (%) (Auto) 13 % (0-9) Eosinophils (%) (Auto) 6 % (0-3) Basophils (%) (Auto) 1 % (0-3) Neutrophils # (Auto) 2.9 x10^3uL (1.8-7.7) Lymphocytes # (Auto) 1.6 x10^3/uL (1.0-4.8) Monocytes # (Auto) 0.7 x10^3/uL (0.0-1.1) Eosinophils # (Auto) 0.3 x10^3/uL (0.0-0.7) Basophils # (Auto) 0.1 x10^3/uL (0.0-0.2) Sodium Level 144 mmol/L (136-145) Potassium Level 3.4 mmol/L (3.5-5.1) Chloride Level 109 mmol/L (98-107) Carbon Dioxide Level 27 mmol/L (21-32) Anion Gap 8 (6-14) Blood Urea Nitrogen 16 mg/dL (7-20) Creatinine 0.6 mg/dL (0.6-1.0) Estimated GFR (Cockcroft-Gault) 94.8 Glucose Level 80 mg/dL (70-99) Calcium Level 7.9 mg/dL (8.5-10.1) Free Thyroxine 1.03 ng/dL (0.76-1.46) Laboratory Tests Test 04/26/17 13:00 04/27/17 04:00 Troponin I Quantitative 1.293 ng/mL (0.000-0.055) White Blood Count 5.6 x10^3/uL (4.0-11.0) Red Blood Count 4.15 x10^6/uL (3.50-5.40) Hemoglobin 13.7 g/dL (12.0-15.5) Hematocrit 41.1 % (36.0-47.0) Mean Corpuscular Volume 99 fL (79-100) Mean Corpuscular Hemoglobin 33 pg (25-35) Mean Corpuscular Hemoglobin Concent 33 g/dL (31-37) Red Cell Distribution Width 14.7 % (11.5-14.5) Platelet Count 117 x10^3/uL (140-400) Neutrophils (%) (Auto) 52 % (31-73) Lymphocytes (%) (Auto) 28 % (24-48) Monocytes (%) (Auto) 13 % (0-9) Eosinophils (%) (Auto) 6 % (0-3) Basophils (%) (Auto) 1 % (0-3) Neutrophils # (Auto) 2.9 x10^3uL (1.8-7.7) Lymphocytes # (Auto) 1.6 x10^3/uL (1.0-4.8) Monocytes # (Auto) 0.7 x10^3/uL (0.0-1.1) Eosinophils # (Auto) 0.3 x10^3/uL (0.0-0.7) Basophils # (Auto) 0.1 x10^3/uL (0.0-0.2) Sodium Level 144 mmol/L (136-145) Potassium Level 3.4 mmol/L (3.5-5.1) Chloride Level 109 mmol/L (98-107) Carbon Dioxide Level 27 mmol/L (21-32) Anion Gap 8 (6-14) Blood Urea Nitrogen 16 mg/dL (7-20) Creatinine 0.6 mg/dL (0.6-1.0) Estimated GFR (Cockcroft-Gault) 94.8 Glucose Level 80 mg/dL (70-99) Calcium Level 7.9 mg/dL (8.5-10.1) Free Thyroxine 1.03 ng/dL (0.76-1.46) Microbiology 04/26/17 Urine Culture - Preliminary, Resulted 04/26/17 Urine Culture Result 1 (CHANDRA) - Preliminary, Resulted Medications Current Medications Sodium Chloride 500 ml @ 1,000 mls/hr 1X ONCE IV Last administered on 23:55; Start 04/26/17 at 00:00; Stop 04/26/17 at 00:29; Status DC Iohexol (Omnipaque 300 Mg/ml) 75 ml 1X ONCE IV Last administered on 00:19; Start 04/26/17 at 00:30; Stop 04/26/17 at 00:31; Status DC Info (Do NOT chart on this entry -- for MONITORING) 1 each PRN DAILY PRN MC SEE COMMENTS; Start 04/25/17 at 23:45; Stop 04/27/17 at 23:44; Status Cancel Aspirin (Estrella Aspirin) 325 mg 1X ONCE PO Last administered on 04/26/17 01: 25; Start 04/26/17 at 01:00; Stop 04/26/17 at 01:01; Status DC Ondansetron HCl (Zofran) 4 mg PRN Q8HRS PRN IV NAUSEA/VOMITING; Start at 01:15; Stop 04/27/17 at 01:14; Status DC Enoxaparin Sodium (Lovenox Per Pharmacy Treatment Dosing) 1 each PRN DAILY PRN MC SEE COMMENTS; Start 04/26/17 at 01:15; Stop 04/26/17 at 17:52; Status DC Enoxaparin Sodium (Lovenox 60mg Syringe) 50 mg 1X ONCE SQ Last administered on 04/26/17 01:25; Start 04/26/17 at 01:30; Stop 04/26/17 at 01:31; Status DC Enoxaparin Sodium (Lovenox 60mg Syringe) 50 mg Q12HR SQ Last administered on 10:46; Start 04/26/17 at 09:00; Stop 04/26/17 at 10:59; Status DC Info (Anti-Coagulation Monitoring By Pharmacy) 1 each PRN DAILY PRN MC SEE COMMENTS Last administered on 04/26/17 10:55; Start 04/26/17 at 03:45; Stop 04/26/17 at 17:53; Status DC Aspirin (Estrella Aspirin) 325 mg DAILYWBKFT PO Last administered on 04/26/17 10 :46; Start 04/26/17 at 11:00 Atorvastatin Calcium (Lipitor) 20 mg QHS PO Last administered on 04/26/17 21: 09; Start 04/26/17 at 21:00 Calcium Carbonate/ Glycine (Tums) 500 mg BIDWMEALS PO ; Start 04/26/17 at 11:00 Multivitamins (Thera M Plus) 1 tab DAILY PO Last administered on 04/26/17 10: 45; Start 04/26/17 at 11:00 Vitamin D (Vitamin D3) 1,000 unit DAILY PO Last administered on 04/26/17 10: 45; Start 04/26/17 at 11:00 Acetaminophen (Tylenol) 500 mg PRN Q6HRS PRN PO MILD PAIN / TEMP; Start at 10:30 Magnesium Hydroxide (Milk Of Magnesia) 2,400 mg PRN DAILY PRN PO CONSTIPATION; Start 04/26/17 at 10:30 Iohexol (Omnipaque 300 Mg/ml) 75 ml 1X ONCE IV ; Start 04/26/17 at 10:45; Stop 04/26/17 at 10:46; Status DC Info (Do NOT chart on this entry -- for MONITORING) 1 each PRN DAILY PRN MC SEE COMMENTS; Start 04/26/17 at 10:45; Stop 04/28/17 at 10:44 Enoxaparin Sodium (Lovenox 60mg Syringe) 50 mg DAILY SQ ; Start 04/27/17 at 09: 00; Stop 04/27/17 at 09:00; Status DC Regadenoson (Lexiscan) 0.4 mg 1X ONCE IV Last administered on 04/27/17 10:09 ; Start 04/27/17 at 09:15; Stop 04/27/17 at 09:16; Status DC Active Scripts Active Fish Oil 1,000 Mg Capsule ([place]-3 Fatty Acids/Fish Oil) 1,000 Mg Capsule 1,000 Mg PO DAILY Thera-M Tablet (Multivits,Ca,Minerals/Iron/Fa) 1 Tab Tablet 1 Tab PO DAILY Tylenol (Acetaminophen) 325 Mg Tablet 650 Mg PO PRN Q6HRS PRN Reported Osteo Bi-Flex Tablet (Glucosamine/D3/Boswellia Mira) 1 Each Tablet 1 Each PO DAILY Vitamin D3 (Cholecalciferol (Vitamin D3)) 1,000 Unit Tablet 1 Tab PO DAILY Calcium (Calcium Carbonate) 500 Mg Tablet 500 Mg PO BID Prolia (Denosumab) 60 Mg/1 Ml Disp.syrin 60 Mg SQ [id number] Aspir 81 (Aspirin) 81 Mg Tablet. 1 Tab PO DAILY Atorvastatin Calcium 20 Mg Tablet 1 Tab PO DAILY Vitals/I & O Vital Sign - Last 24 Hours 04/26/17 04/26/17 04/26/17 04/26/17 11:00 15:00 19:15 19:54 Temp 97.6 97.6 97.7 97.6 97.6 97.7 Pulse 68 63 70 Resp 19 19 18 B/P (MAP) 139/72 (94) 128/76 (93) 125/76 (92) Pulse Ox 96 97 92 O2 Delivery Room Air Room Air Room Air Room Air 04/26/17 04/27/17 04/27/17 22:22 03:00 07:00 Temp 97.8 98.1 97.3 97.8 98.1 97.3 Pulse 108 96 70 Resp B/P (MAP) 147/86 (106) 137/76 (96) 126/77 (93) Pulse Ox 96 96 94 O2 Delivery Room Air Room Air Room Air BASIL APARICIO MD Apr 27, 2017 10:19
[2017-04-27 11:00] VITALS: BP 133/55
[2017-04-27] MEDS: ASPIRIN 325 MG TABLET PO SCH (11:35)
[2017-04-27] MEDS: CHOLECALCIFEROL (VITAMIN D3) 1,000 UNIT TABLET PO SCH (11:36)
[2017-04-27] MEDS: MULTIVITAMIN with MINERAL TABLET. PO SCH (11:36)
--- NOTE | 2017-04-27 12:45 | RAD ---
APPROVED REPORT Test Type: Pharmacological Stress Nurse/Tech: TAMIKA Tavarez Test Indications: NSTEMI Cardiac History: PPM, see EMR Medications: see EMR Medical History: see EMR Resting ECG: SR w/BBB Resting Heart Rate: 68 bpm Resting Blood Pressure: 148/74mmHg Pretest Chest Pain: No chest pain Nurse/Tech Notes HR 60's, SR w/BBB per monitor, murmur noted, denies chest pain or SOA Consent: The procedure was explained to the patient in lay terms. Informed consent was witnessed. Carlos Eduardo eout was entered into [employer] [facility]. History and Stress Test performed by RT Edgar (Elle) (N) Pharm. Details Pharmacologic stress testing was performed using 0.4mg per 5ml of regadenoson given intravenously ove r 7-10 seconds. Stress Symptoms No chest pain or symptoms. POST EXERCISE Reason for Termination: Infusion complete Max HR: 103 bpm Max Blood Pressure: 149/97mmHg Blood Pressure response to exercise: Normal blood pressure response during stress. Heart Rate response to exercise: Normal response to stress Chest Pain: No. Arrhythmia: No. SR w/BBB and PVC's noted ST Change: No. INTERPRETATION Stress EKG Conclusion: No evidence of stress induced EKG changes. Rare PVC's Imaging Protocol IMAGE PROTOCOL: Rest Tc-99m/stress Tc-99m 1 day Rest: Stress: Viability: Radiopharm.Tc99m [id number] Sestamibi Agot88yLm 34mCi Duration 15min. 10min. Img Date 04/27/2017 04/27/2017 Inj-Img Ybmr88ggs. 60min. Rest Admin Site:IV - Left AntecubitalAdministrator:RT Treva (Elle)(N) Stress Admin Site: IV - Left AntecubitalAdministrator: RT Poncho Hernández)(N) STRESS DATA End Diast. Vol.99.0mlAv. Heart Rate77.0bpm End Syst. Vol.26.0mlCO Index BSA0.0L/min Myocardial Mdly330.0gEject. Wuuviiqm16.0% Stress Rates Pk. Fill Rate2.77EDV/secLVtime Pk. Fill 112.23msec Pk. Empty Rate4.16ESV/secLVtime Pk. Ruuyb110.50msec /3 Pk. Fill1.83EDV/sec Stress Scores Regional WT0.00Summed WT7.00 Regional WM0.00Summed WM1.00 The rest and stress images show normal perfusion, normal contraction and thickening. LV Perf. Quant 17 Seg. SSS3.00 17 Seg. SRS3.00 17 Seg. SDS2.00 Stress Defect Extent (% LAD)0.00Rest Defect Extent (% LAD)0.00Rev. Defect Extent (% LAD)0.00 Stress Defect Extent (% LCX) 0.00Rest Defect Extent (% LCX)11.30Rev. Defect Extent (% LCX)0.00 Stress Defect Extent (% RCA)18.90Rest Defect Extent (% RCA)7.80Rev. Defect Extent (% RCA)8.90 Stress Defect Extent (% CHRIS)3.70Rest Defect Extent (% CHRIS)4.60Rev. Defect Extent (% CHRIS)1.70 Other Information Quality:Good Risk Assessment: Low Risk Conclusion 1. No evidence of stress induced EKG changes. Rare PVC's noted. 2. Normal perfusion at stress/rest. 3. Normal EF at > 70% 4. Low risk study
[2017-04-27 15:00] VITALS: BP 128/68
[2017-04-27] MEDS: METOPROLOL TART IMMED RELEASE 25 MG TABLET. PO SCH ×2 (17:33→20:25)
[2017-04-27 19:20] VITALS: BP 125/59
[2017-04-27] MEDS: ATORVASTATIN CALCIUM 20 MG TABLET PO SCH (20:25)
[2017-04-27 23:25] VITALS: BP 110/61
[2017-04-28 03:25] VITALS: BP 110/56
[2017-04-28 06:04] LABS: CALCIUM 8.2 mg/dL (8.5-10.1); CREATININE 0.7 mg/dL (0.6-1.0); GFR 79.3; MAGNESIUM 2.2 mg/dL (1.8-2.4)
[2017-04-28 07:00] VITALS: BP 114/62
[2017-04-28] MEDS: CALCIUM CARBONATE 500 MG TAB.CHEW PO SCH (08:00)
[2017-04-28] MEDS: CHOLECALCIFEROL (VITAMIN D3) 1,000 UNIT TABLET PO SCH (08:39)
[2017-04-28] MEDS: MULTIVITAMIN with MINERAL TABLET. PO SCH (08:39)
[2017-04-28] MEDS: METOPROLOL TART IMMED RELEASE 25 MG TABLET. PO SCH (08:40)
[2017-04-28] MEDS: ASPIRIN 325 MG TABLET PO SCH (08:41)
--- NOTE | 2017-04-28 09:02 | PDOC ---
PROGRESS NOTES Assessment Problems Medical Problems: (1) Elevated troponin Status: Acute Suspect brainstem stroke, negative head CT 2, cannot have MRI due to pacemaker Left posterior inferior cerebellar artery stenosis Plan Aspirin dose 325 mg daily Continue statin Okay for discharge Follow-up with me as needed Subjective No complaints, still feels unsteady when she walks. Objective Vital Signs Date Time Temp Pulse Resp B/P (MAP) Pulse Ox O2 Delivery O2 Flow Rate FiO2 04/28/17 08:40 60 114/62 04/28/17 07:00 97.8 18 97 Room Air 97.8 PHYSICAL EXAM Alert. Oriented to time, place and person. PERRL. EOMI. CN: no focal findings. Muscle tone: normal. Muscle strength: 5/5 DTR: 1+ Plantar reflex: flexor Gait: slight ataxia Sensory exam: no abnormal findings. No appendicular cerebellar signs elicited. Review of Relevant I have reviewed the following items bettie (where applicable) has been applied. Labs Laboratory Tests Test 04/26/17 13:00 04/27/17 04:00 04/28/17 05:00 Troponin I Quantitative 1.293 ng/mL (0.000-0.055) White Blood Count 5.6 x10^3/uL (4.0-11.0) Red Blood Count 4.15 x10^6/uL (3.50-5.40) Hemoglobin 13.7 g/dL (12.0-15.5) Hematocrit 41.1 % (36.0-47.0) Mean Corpuscular Volume 99 fL (79-100) Mean Corpuscular Hemoglobin 33 pg (25-35) Mean Corpuscular Hemoglobin Concent 33 g/dL (31-37) Red Cell Distribution Width 14.7 % (11.5-14.5) Platelet Count 117 x10^3/uL (140-400) Neutrophils (%) (Auto) 52 % (31-73) Lymphocytes (%) (Auto) 28 % (24-48) Monocytes (%) (Auto) 13 % (0-9) Eosinophils (%) (Auto) 6 % (0-3) Basophils (%) (Auto) 1 % (0-3) Neutrophils # (Auto) 2.9 x10^3uL (1.8-7.7) Lymphocytes # (Auto) 1.6 x10^3/uL (1.0-4.8) Monocytes # (Auto) 0.7 x10^3/uL (0.0-1.1) Eosinophils # (Auto) 0.3 x10^3/uL (0.0-0.7) Basophils # (Auto) 0.1 x10^3/uL (0.0-0.2) Sodium Level 144 mmol/L (136-145) 144 mmol/L (136-145) Potassium Level 3.4 mmol/L (3.5-5.1) 4.0 mmol/L (3.5-5.1) Chloride Level 109 mmol/L (98-107) 108 mmol/L (98-107) Carbon Dioxide Level 27 mmol/L (21-32) 27 mmol/L (21-32) Anion Gap 8 (6-14) 9 (6-14) Blood Urea Nitrogen 16 mg/dL (7-20) 22 mg/dL (7-20) Creatinine 0.6 mg/dL (0.6-1.0) 0.7 mg/dL (0.6-1.0) Estimated GFR (Cockcroft-Gault) 94.8 79.3 Glucose Level 80 mg/dL (70-99) 74 mg/dL (70-99) Calcium Level 7.9 mg/dL (8.5-10.1) 8.2 mg/dL (8.5-10.1) Magnesium Level 2.0 mg/dL (1.8-2.4) 2.2 mg/dL (1.8-2.4) Free Thyroxine 1.03 ng/dL (0.76-1.46) Laboratory Tests Test 04/28/17 05:00 Sodium Level 144 mmol/L (136-145) Potassium Level 4.0 mmol/L (3.5-5.1) Chloride Level 108 mmol/L (98-107) Carbon Dioxide Level 27 mmol/L (21-32) Anion Gap 9 (6-14) Blood Urea Nitrogen 22 mg/dL (7-20) Creatinine 0.7 mg/dL (0.6-1.0) Estimated GFR (Cockcroft-Gault) 79.3 Glucose Level 74 mg/dL (70-99) Calcium Level 8.2 mg/dL (8.5-10.1) Magnesium Level 2.2 mg/dL (1.8-2.4) Microbiology 04/26/17 Urine Culture - Preliminary, Resulted 04/26/17 Urine Culture Result 1 (CHANDRA) - Preliminary, Resulted Medications Current Medications Sodium Chloride 500 ml @ 1,000 mls/hr 1X ONCE IV Last administered on 23:55; Start 04/26/17 at 00:00; Stop 04/26/17 at 00:29; Status DC Iohexol (Omnipaque 300 Mg/ml) 75 ml 1X ONCE IV Last administered on 00:19; Start 04/26/17 at 00:30; Stop 04/26/17 at 00:31; Status DC Info (Do NOT chart on this entry -- for MONITORING) 1 each PRN DAILY PRN MC SEE COMMENTS; Start 04/25/17 at 23:45; Stop 04/27/17 at 23:44; Status Cancel Aspirin (Estrella Aspirin) 325 mg 1X ONCE PO Last administered on 04/26/17 01: 25; Start 04/26/17 at 01:00; Stop 04/26/17 at 01:01; Status DC Ondansetron HCl (Zofran) 4 mg PRN Q8HRS PRN IV NAUSEA/VOMITING; Start at 01:15; Stop 04/27/17 at 01:14; Status DC Enoxaparin Sodium (Lovenox Per Pharmacy Treatment Dosing) 1 each PRN DAILY PRN MC SEE COMMENTS; Start 04/26/17 at 01:15; Stop 04/26/17 at 17:52; Status DC Enoxaparin Sodium (Lovenox 60mg Syringe) 50 mg 1X ONCE SQ Last administered on 04/26/17 01:25; Start 04/26/17 at 01:30; Stop 04/26/17 at 01:31; Status DC Enoxaparin Sodium (Lovenox 60mg Syringe) 50 mg Q12HR SQ Last administered on 10:46; Start 04/26/17 at 09:00; Stop 04/26/17 at 10:59; Status DC Info (Anti-Coagulation Monitoring By Pharmacy) 1 each PRN DAILY PRN MC SEE COMMENTS Last administered on 04/26/17 10:55; Start 04/26/17 at 03:45; Stop 04/26/17 at 17:53; Status DC Aspirin (Estrella Aspirin) 325 mg DAILYWBKFT PO Last administered on 04/28/17 08 :41; Start 04/26/17 at 11:00 Atorvastatin Calcium (Lipitor) 20 mg QHS PO Last administered on 04/27/17 20: 25; Start 04/26/17 at 21:00 Calcium Carbonate/ Glycine (Tums) 500 mg BIDWMEALS PO ; Start 04/26/17 at 11:00 Multivitamins (Thera M Plus) 1 tab DAILY PO Last administered on 04/28/17 08: 39; Start 04/26/17 at 11:00 Vitamin D (Vitamin D3) 1,000 unit DAILY PO Last administered on 04/28/17 08: 39; Start 04/26/17 at 11:00 Acetaminophen (Tylenol) 500 mg PRN Q6HRS PRN PO MILD PAIN / TEMP; Start at 10:30 Magnesium Hydroxide (Milk Of Magnesia) 2,400 mg PRN DAILY PRN PO CONSTIPATION; Start 04/26/17 at 10:30 Iohexol (Omnipaque 300 Mg/ml) 75 ml 1X ONCE IV ; Start 04/26/17 at 10:45; Stop 04/26/17 at 10:46; Status DC Info (Do NOT chart on this entry -- for MONITORING) 1 each PRN DAILY PRN MC SEE COMMENTS; Start 04/26/17 at 10:45; Stop 04/28/17 at 10:44 Enoxaparin Sodium (Lovenox 60mg Syringe) 50 mg DAILY SQ ; Start 04/27/17 at 09: 00; Stop 04/27/17 at 09:00; Status DC Regadenoson (Lexiscan) 0.4 mg 1X ONCE IV Last administered on 04/27/17 10:09 ; Start 04/27/17 at 09:15; Stop 04/27/17 at 09:16; Status DC Potassium Chloride (Klor-Con) 20 meq 1X ONCE PO Last administered on 11:37; Start 04/27/17 at 10:15; Stop 04/27/17 at 10:20; Status DC Metoprolol Tartrate (Lopressor) 25 mg BID PO Last administered on 04/28/17 08 :40; Start 04/27/17 at 12:00 Active Scripts Active Fish Oil 1,000 Mg Capsule ([place]-3 Fatty Acids/Fish Oil) 1,000 Mg Capsule 1,000 Mg PO DAILY Thera-M Tablet (Multivits,Ca,Minerals/Iron/Fa) 1 Tab Tablet 1 Tab PO DAILY Tylenol (Acetaminophen) 325 Mg Tablet 650 Mg PO PRN Q6HRS PRN Reported Osteo Bi-Flex Tablet (Glucosamine/D3/Boswellia Mira) 1 Each Tablet 1 Each PO DAILY Vitamin D3 (Cholecalciferol (Vitamin D3)) 1,000 Unit Tablet 1 Tab PO DAILY Calcium (Calcium Carbonate) 500 Mg Tablet 500 Mg PO BID Prolia (Denosumab) 60 Mg/1 Ml Disp.syrin 60 Mg SQ [id number] Aspir 81 (Aspirin) 81 Mg Tablet. 1 Tab PO DAILY Atorvastatin Calcium 20 Mg Tablet 1 Tab PO DAILY Vitals/I & O Vital Sign - Last 24 Hours 04/27/17 04/27/17 04/27/17 04/27/17 11:00 15:00 17:33 19:20 Temp 98.5 98.1 98.0 98.5 98.1 98.0 Pulse 89 76 67 60 Resp 18 B/P (MAP) 133/55 (81) 128/68 (88) 128/68 125/59 (81) Pulse Ox 94 96 95 O2 Delivery Room Air Room Air Room Air 04/27/17 04/27/17 04/27/17 04/28/17 20:00 20:25 23:25 03:25 Temp 97.8 97.6 97.8 97.6 Pulse 60 59 59 Resp 18 17 B/P (MAP) 125/59 110/61 (77) 110/56 (74) Pulse Ox 97 96 O2 Delivery Room Air Room Air Room Air 04/28/17 04/28/17 07:00 08:40 Temp 97.8 97.8 Pulse 60 60 Resp 18 B/P (MAP) 114/62 (79) 114/62 Pulse Ox 97 O2 Delivery Room Air HARSH HILLIARD MD Apr 28, 2017 09:02
--- NOTE | 2017-04-28 09:58 | PDOC ---
PROGRESS NOTES Subjective Subjective declines home health. feels better. passed MPI stress test. says metoprolol can lower bp and will lower dose. wants to go home. Objective Objective Vital Signs Date Time Temp Pulse Resp B/P (MAP) Pulse Ox O2 Delivery O2 Flow Rate FiO2 04/28/17 08:40 60 114/62 04/28/17 07:00 97.8 18 97 Room Air 97.8 Physical Exam Abdomen: Soft Heart: Regular rate, Normal S1, Normal S2 Extremities: No edema General: Alert HEENT: Atraumatic Lungs: Clear to auscultation Neuro: Normal gait Psych/Mental Status: Mental status NL, Other (no focal weakness. finger to nose testing normal bilaterally) Skin: No rashes Assessment Assessment Problems NSTEMI 2. 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 4. Hyperlipidemia. 5. Osteoporosis. Medical Problems: (1) Elevated troponin Status: Acute Plan Plan of Care decrease metoprolol continue aspirin and atorvastatin dismiss today Comment Review of Relevant I have reviewed the following items bettie (where applicable) has been applied. Labs Laboratory Tests Test 04/26/17 13:00 04/27/17 04:00 04/28/17 05:00 Troponin I Quantitative 1.293 ng/mL (0.000-0.055) White Blood Count 5.6 x10^3/uL (4.0-11.0) Red Blood Count 4.15 x10^6/uL (3.50-5.40) Hemoglobin 13.7 g/dL (12.0-15.5) Hematocrit 41.1 % (36.0-47.0) Mean Corpuscular Volume 99 fL (79-100) Mean Corpuscular Hemoglobin 33 pg (25-35) Mean Corpuscular Hemoglobin Concent 33 g/dL (31-37) Red Cell Distribution Width 14.7 % (11.5-14.5) Platelet Count 117 x10^3/uL (140-400) Neutrophils (%) (Auto) 52 % (31-73) Lymphocytes (%) (Auto) 28 % (24-48) Monocytes (%) (Auto) 13 % (0-9) Eosinophils (%) (Auto) 6 % (0-3) Basophils (%) (Auto) 1 % (0-3) Neutrophils # (Auto) 2.9 x10^3uL (1.8-7.7) Lymphocytes # (Auto) 1.6 x10^3/uL (1.0-4.8) Monocytes # (Auto) 0.7 x10^3/uL (0.0-1.1) Eosinophils # (Auto) 0.3 x10^3/uL (0.0-0.7) Basophils # (Auto) 0.1 x10^3/uL (0.0-0.2) Sodium Level 144 mmol/L (136-145) 144 mmol/L (136-145) Potassium Level 3.4 mmol/L (3.5-5.1) 4.0 mmol/L (3.5-5.1) Chloride Level 109 mmol/L (98-107) 108 mmol/L (98-107) Carbon Dioxide Level 27 mmol/L (21-32) 27 mmol/L (21-32) Anion Gap 8 (6-14) 9 (6-14) Blood Urea Nitrogen 16 mg/dL (7-20) 22 mg/dL (7-20) Creatinine 0.6 mg/dL (0.6-1.0) 0.7 mg/dL (0.6-1.0) Estimated GFR (Cockcroft-Gault) 94.8 79.3 Glucose Level 80 mg/dL (70-99) 74 mg/dL (70-99) Calcium Level 7.9 mg/dL (8.5-10.1) 8.2 mg/dL (8.5-10.1) Magnesium Level 2.0 mg/dL (1.8-2.4) 2.2 mg/dL (1.8-2.4) Free Thyroxine 1.03 ng/dL (0.76-1.46) Laboratory Tests Test 04/28/17 05:00 Sodium Level 144 mmol/L (136-145) Potassium Level 4.0 mmol/L (3.5-5.1) Chloride Level 108 mmol/L (98-107) Carbon Dioxide Level 27 mmol/L (21-32) Anion Gap 9 (6-14) Blood Urea Nitrogen 22 mg/dL (7-20) Creatinine 0.7 mg/dL (0.6-1.0) Estimated GFR (Cockcroft-Gault) 79.3 Glucose Level 74 mg/dL (70-99) Calcium Level 8.2 mg/dL (8.5-10.1) Magnesium Level 2.2 mg/dL (1.8-2.4) Microbiology 04/26/17 Urine Culture - Preliminary, Resulted 04/26/17 Urine Culture Result 1 (CHANDRA) - Preliminary, Resulted Medications Current Medications Sodium Chloride 500 ml @ 1,000 mls/hr 1X ONCE IV Last administered on 23:55; Start 04/26/17 at 00:00; Stop 04/26/17 at 00:29; Status DC Iohexol (Omnipaque 300 Mg/ml) 75 ml 1X ONCE IV Last administered on 00:19; Start 04/26/17 at 00:30; Stop 04/26/17 at 00:31; Status DC Info (Do NOT chart on this entry -- for MONITORING) 1 each PRN DAILY PRN MC SEE COMMENTS; Start 04/25/17 at 23:45; Stop 04/27/17 at 23:44; Status Cancel Aspirin (Estrella Aspirin) 325 mg 1X ONCE PO Last administered on 04/26/17 01: 25; Start 04/26/17 at 01:00; Stop 04/26/17 at 01:01; Status DC Ondansetron HCl (Zofran) 4 mg PRN Q8HRS PRN IV NAUSEA/VOMITING; Start at 01:15; Stop 04/27/17 at 01:14; Status DC Enoxaparin Sodium (Lovenox Per Pharmacy Treatment Dosing) 1 each PRN DAILY PRN MC SEE COMMENTS; Start 04/26/17 at 01:15; Stop 04/26/17 at 17:52; Status DC Enoxaparin Sodium (Lovenox 60mg Syringe) 50 mg 1X ONCE SQ Last administered on 04/26/17 01:25; Start 04/26/17 at 01:30; Stop 04/26/17 at 01:31; Status DC Enoxaparin Sodium (Lovenox 60mg Syringe) 50 mg Q12HR SQ Last administered on 10:46; Start 04/26/17 at 09:00; Stop 04/26/17 at 10:59; Status DC Info (Anti-Coagulation Monitoring By Pharmacy) 1 each PRN DAILY PRN MC SEE COMMENTS Last administered on 04/26/17 10:55; Start 04/26/17 at 03:45; Stop 04/26/17 at 17:53; Status DC Aspirin (Estrella Aspirin) 325 mg DAILYWBKFT PO Last administered on 04/28/17 08 :41; Start 04/26/17 at 11:00 Atorvastatin Calcium (Lipitor) 20 mg QHS PO Last administered on 04/27/17 20: 25; Start 04/26/17 at 21:00 Calcium Carbonate/ Glycine (Tums) 500 mg BIDWMEALS PO ; Start 04/26/17 at 11:00 Multivitamins (Thera M Plus) 1 tab DAILY PO Last administered on 04/28/17 08: 39; Start 04/26/17 at 11:00 Vitamin D (Vitamin D3) 1,000 unit DAILY PO Last administered on 04/28/17 08: 39; Start 04/26/17 at 11:00 Acetaminophen (Tylenol) 500 mg PRN Q6HRS PRN PO MILD PAIN / TEMP; Start at 10:30 Magnesium Hydroxide (Milk Of Magnesia) 2,400 mg PRN DAILY PRN PO CONSTIPATION; Start 04/26/17 at 10:30 Iohexol (Omnipaque 300 Mg/ml) 75 ml 1X ONCE IV ; Start 04/26/17 at 10:45; Stop 04/26/17 at 10:46; Status DC Info (Do NOT chart on this entry -- for MONITORING) 1 each PRN DAILY PRN MC SEE COMMENTS; Start 04/26/17 at 10:45; Stop 04/28/17 at 10:44 Enoxaparin Sodium (Lovenox 60mg Syringe) 50 mg DAILY SQ ; Start 04/27/17 at 09: 00; Stop 04/27/17 at 09:00; Status DC Regadenoson (Lexiscan) 0.4 mg 1X ONCE IV Last administered on 04/27/17 10:09 ; Start 04/27/17 at 09:15; Stop 04/27/17 at 09:16; Status DC Potassium Chloride (Klor-Con) 20 meq 1X ONCE PO Last administered on 11:37; Start 04/27/17 at 10:15; Stop 04/27/17 at 10:20; Status DC Metoprolol Tartrate (Lopressor) 25 mg BID PO Last administered on 04/28/17t 08 :40; Start 04/27/17 at 12:00 Active Scripts Active Fish Oil 1,000 Mg Capsule ([place]-3 Fatty Acids/Fish Oil) 1,000 Mg Capsule 1,000 Mg PO DAILY Thera-M Tablet (Multivits,Ca,Minerals/Iron/Fa) 1 Tab Tablet 1 Tab PO DAILY Tylenol (Acetaminophen) 325 Mg Tablet 650 Mg PO PRN Q6HRS PRN Reported Osteo Bi-Flex Tablet (Glucosamine/D3/Boswellia Mira) 1 Each Tablet 1 Each PO DAILY Vitamin D3 (Cholecalciferol (Vitamin D3)) 1,000 Unit Tablet 1 Tab PO DAILY Calcium (Calcium Carbonate) 500 Mg Tablet 500 Mg PO BID Prolia (Denosumab) 60 Mg/1 Ml Disp.syrin 60 Mg SQ [id number] Aspir 81 (Aspirin) 81 Mg Tablet.dr 1 Tab PO DAILY Atorvastatin Calcium 20 Mg Tablet 1 Tab PO DAILY Vitals/I & O Vital Sign - Last 24 Hours 04/27/17 04/27/17 04/27/17 04/27/17 11:00 15:00 17:33 19:20 Temp 98.5 98.1 98.0 98.5 98.1 98.0 Pulse 89 76 67 60 Resp 18 19 17 B/P (MAP) 133/55 (81) 128/68 (88) 128/68 125/59 (81) Pulse Ox 94 96 95 O2 Delivery Room Air Room Air Room Air 04/27/17 04/27/17 04/27/17 04/28/17 20:00 20:25 23:25 03:25 Temp 97.8 97.6 97.8 97.6 Pulse 60 59 59 Resp 18 17 B/P (MAP) 125/59 110/61 (77) 110/56 (74) Pulse Ox 97 96 O2 Delivery Room Air Room Air Room Air 04/28/17 04/28/17 07:00 08:40 Temp 97.8 97.8 Pulse 60 60 Resp 18 B/P (MAP) 114/62 (79) 114/62 Pulse Ox 97 O2 Delivery Room Air BASIL APARICIO MD Apr 28, 2017 09:57
--- NOTE | 2017-04-28 10:04 | PDOC ---
Provider Note Provider Note discharge summary dictated # [id number] BASIL APARICIO MD Apr 28, 2017 10:04
--- NOTE | 2017-04-28 10:05 | DISCH ---
DISCHARGE INSTRUCTIONS Condition on Discharge Condition on Discharge: Stable Activity After Discharge Activity Instructions for Disc: Resume previous activity Diet after Discharge Diet after Discharge: Cardiac Contacting the DR. after DC Call your doctor for: If your condition worsens Follow-Up Follow up with: drt. aparicio next week BASIL APARICIO MD Apr 28, 2017 10:05
[2017-04-28] MEDS ORDERED: ASPI325T8 PO (10:06)
[2017-04-28] MEDS ORDERED: METO25TA4 PO (10:06)
--- NOTE | 2017-04-28 10:27 | DS ---
DATE OF DISCHARGE: 04/28/2017 CONSULTANTS: Dr. Asher. Dr. Thorne. FINAL DIAGNOSES: 1. Non-ST segment elevated myocardial infarction. 2. 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 3. Moderate aortic stenosis. 4. Moderate mitral regurgitation. 5. Hyperlipidemia. 6. Osteoporosis. 7. Multifocal stenosis in the left posterior inferior cerebellar artery. HOSPITAL COURSE: The patient is an 86-year-old white female with a history of hyperlipidemia, osteoporosis, aortic stenosis, mitral regurgitation, admitted to [facility] on 04/25/2017 after onset of swaying in the room when she was visiting her son, and she could not move her left leg, and she shuffled her feet, went to the [facility] Room where she had no focal weakness, but had numbness in the upper extremities the following morning. Troponin levels were elevated consistent with non-ST elevated myocardial infarction. She had a CAT scan of the head that was negative and had a CAT scan of the head and neck angiogram, which was also negative except for multiple stenosis involving the left posterior inferior cerebellar artery. Her aspirin was increased from 81 mg to 325 mg every day, atorvastatin was continued at 20 mg at bedtime, and she was seen by Dr. Thorne in consultation. Echocardiogram showed moderate aortic stenosis and moderate mitral regurgitation. She had some pulmonary hypertension and some mild to moderate tricuspid regurgitation. She passed her myocardial perfusion imaging stress test. She was started on metoprolol. In addition, her aspirin was increased as mentioned to 325 mg every day. She declined home health, had physical and occupational therapy and was ambulatory without any assistive device. She tends to go to a health club to strength. She will be dismissed to home on aspirin 325 mg every day, atorvastatin 20 mg every day, calcium carbonate 500 mg b.i.d., vitamin D 1000 units every day, fish oil 1 g daily, glucosamine 500 mg every day, multiple vitamin every day, Prolia 60 mg subcutaneously every 6 months and metoprolol tartrate 12.5 mg b.i.d. and make an appointment to see Dr. Chauhan next week and as mentioned dismissed on aspirin 325 mg every day. BASIL CHAUHAN MD DR: Nelda JOB#: [id number] / [id number]
[2017-04-28 11:05] VITALS: BP 98/60
[2017-04-28] MEDS ORDERED: METOPROLOL TART IMMED RELEASE 25 MG TABLET. PO SCH (21:00)
== END 2017-04-28 12:20 | disposition home or self-care (01) | DRG 64 ==
LOC: ER 22:36 → 2 SOUTH 23:00
PROVIDERS: ADMIT Internal Medicine; ATTEND Internal Medicine
DX: I63.542 Cerebral infarction due to unspecified occlusion or stenosis of left cerebellar artery (principal); I21.4 Non-ST elevation (NSTEMI) myocardial infarction; I47.2 Ventricular tachycardia; I27.20 Pulmonary hypertension, unspecified; E03.9 Hypothyroidism, unspecified; E78.5 Hyperlipidemia, unspecified; E87.6 Hypokalemia; M19.90 Unspecified osteoarthritis, unspecified site; I08.3 Combined rheumatic disorders of mitral, aortic and tricuspid valves; I10 Essential (primary) hypertension; M25.78 Osteophyte, vertebrae; M81.0 Age-related osteoporosis without current pathological fracture; Z79.82 Long term (current) use of aspirin; Z79.899 Other long term (current) drug therapy; Z87.442 Personal history of urinary calculi; Z87.440 Personal history of urinary (tract) infections; Z90.89 Acquired absence of other organs; Z98.49 Cataract extraction status, unspecified eye; Z95.0 Presence of cardiac pacemaker
CPT/HCPCS: 36415; 70450; 70496; 70498; 71010; 78452; 80048; 80061; 80076; 80307; 81001; 82553; 83605; 83735; 83880; 84439; 84443; 84484; 85025; 85610; 87086; 87186; 93005; 93017; 93306; 96360; 96361; 96372; 96374; 96375; 96376; A9500; J1650; J2785; J7030; Q9967; 92610; 97112; 97116; 97535; 99285-25; G0479

== ENCOUNTER → 2018-06-27 | Outpatient (CLI) | payer MEDICARE ==
[~2018-06-27] MED LIST changes: +ASPI325T8 PO; +METO25TA4 PO
--- NOTE | 2018-06-28 08:17 | CARD ---
MR#: [id number] Date of Study: 06/27/2018 Ordering Physician: ARA THORNE, Referring Physician: ARA THORNE Tech: Anna Quinn RDCS APPROVED REPORT EXAM: Two-dimensional and M-mode echocardiogram with Doppler and color Doppler. Other Information Quality : GoodHR: 69bpm Rhythm : Pacemaker INDICATION Complete Heart Block 2D DIMENSIONS RVDd2.3 (2.9-3.5cm)Left Atrium(2D)4.7 (1.6-4.0cm) IVSd1.4 (0.7-1.1cm)Aortic Root(2D)2.4 (2.0-3.7cm) LVDd5.1 (3.9-5.9cm)LVOT Diameter1.9 (1.8-2.4cm) PWd1.2 (0.7-1.1cm)LVDs3.4 (2.5-4.0cm) FS (%) 33.4 %SV75.1 ml LVEF(%)61.8 (>50%) M-Mode DIMENSIONS Left Atrium(MM)4.36 (2.5-4.0cm)Aortic Root2.90 (2.2-3.7cm) Aortic Valve AoV Peak Jack.380.2cm/sAoV USC835.3cm AO Peak GR.57.8mmHgLVOT Peak Jack.88.2cm/s AO Mean GR.38mmHgAVA (VMAX)0.63cm2 Mitral Valve MV E Oocapmas505.6cm/sMV E Peak Gr.11mmHg MV DECEL [id number] A Gljzlowi947.9cm/s MV E Mean Gr.5mmHgE/A Ratio1.0 MV A Nmwxtbkl824wgVYJ Planimetry0.60cm2 Pulmonary Valve PV Peak Kjauvypi88.2cm/s Tricuspid Valve TR P. Tidqufii940zm/sRAP PAWPKRBG0wjSl TR Peak Gr.08klQdEDIE03wdOo LEFT VENTRICLE The left ventricle is normal size. There is mild concentric left ventricular hypertrophy. The left ve ntricular systolic function is normal. The Ejection Fraction is 55-60%. There is normal LV segmental wall motion. RIGHT VENTRICLE The right ventricle is normal size. There is normal right ventricular wall thickness. The right ventr icular systolic function is normal. Pacer lead noted in RV/RA. ATRIA The left atrium is moderately dilated. The right atrium is moderately dilated. The interatrial septum is intact with no evidence for an atrial septal defect or patent foramen ovale as noted on 2-D or Do ppler imaging. AORTIC VALVE The aortic valve is trileaflet. The aortic valve is moderately to severely calcified. Doppler and Col or Flow revealed trace aortic regurgitation. There is moderate to severe valvular aortic stenosis wit h mean pressure gradient of 38 mmHg. MITRAL VALVE Mitral annular calcification is moderate. There is mild mitral valve stenosis. Calculated mitral valv e area is 1.1 cm2 with maximum pressure gradient of 11.3 mmHg and mean pressure gradient of 5 mmHg. D oppler and Color-flow revealed moderate to severe mitral regurgitation. TRICUSPID VALVE The tricuspid valve is normal in structure and function. There is mild pulmonary hypertension. The PA pressure was estimated at 34 mmHg. Doppler and Color Flow revealed moderate tricuspid regurgitation. There is no tricuspid valve prolapse or vegetation. There is no tricuspid valve stenosis. PULMONIC VALVE Pulmonic valve not well visualized. GREAT VESSELS The aortic root is normal in size. The ascending aorta is normal in size. The IVC is normal in size a nd collapses >50% with inspiration. PERICARDIAL EFFUSION There is no evidence of significant pericardial effusion. Critical Notification Critical Value: No <Conclusion> The left ventricular systolic function is normal. The Ejection Fraction is 55-60%. There is normal LV segmental wall motion. Pacer lead noted in RV/RA. The left atrium is moderately dilated. Moderate to severe valvular aortic stenosis with mean pressure gradient of 38 mmHg. Mild mitral valve stenosis with mean pressure gradient of 5 mmHg. Moderate to severe mitral regurgitation. Moderate tricuspid regurgitation. The PA pressure was estimated at 34 mmHg. There is no evidence of significant pericardial effusion. Signed by : Ara Thorne, Electronically Approved : 06/28/2018 08:15:31
== END | disposition home or self-care (01) ==
LOC: ECHO 13:06
PROVIDERS: ATTEND Internal Medicine Cardiovascular Disease
DX: I44.2 Atrioventricular block, complete (principal); I51.7 Cardiomegaly; I27.20 Pulmonary hypertension, unspecified
CPT/HCPCS: 93306

== ENCOUNTER → 2019-03-18 | Outpatient (CLI) | payer MEDICARE ==
--- NOTE | 2019-03-18 16:18 | KCIC ---
Bone densitometry 03/18/2019 12:10 PM Indication: Post menopausal loss of height. Osteoporosis Comparison Study: None. Discussion: Bone Densitometry was performed with dual photon absorption of the lumbar spine and proximal left femur. Lumbar Spine: Curvature and degenerative change of the lumbar spine is noted. This can alter bone mineral density measurement. Bone average density is 0.912g/cm2 for L1-L4. T-Score is -1.2. Proximal left femur: Bone average density is 0.694g/cm2. T-Score is -2.0. IMPRESSION: Osteopenia. Fracture risk is considered high. Post therapeutic follow-up exam recommended. Note: Definitions established by the World Health Organization: Normal: T-score is -1.0 or above. Osteopenia: T-score is between -1.0 and -2.5. Osteoporosis: T-score is -2.5 or below. Electronically signed by: Keo Wolf MD (03/18/2019 4:15 PM) [id number]
== END | disposition home or self-care (01) ==
LOC: KCIC DEXA 11:40
PROVIDERS: ATTEND Internal Medicine
DX: M85.88 Other specified disorders of bone density and structure, other site (principal); M81.8 Other osteoporosis without current pathological fracture
CPT/HCPCS: 77080

== ENCOUNTER → 2019-06-19 | Outpatient (CLI) | payer MEDICARE ==
[~2019-06-19] MED LIST changes: +REGADENOSON 0.4 MG/5 ML DISP.SYRIN. IV ONE
--- NOTE | 2019-06-19 11:38 | CARD ---
MR#: [id number] Date of Study: 06/19/2019 Ordering Physician: ARA THORNE, Referring Physician: ARA THORNE, Tech: Lesvia Sheikh APPROVED REPORT EXAM: Two-dimensional and M-mode echocardiogram with Doppler and color Doppler. Other Information Quality : AverageHR: 64bpm Rhythm : Pacemaker INDICATION Arrhythmia Complete heart block Surgery/Intervention Pacemaker: Date: 2015 2D DIMENSIONS RVDd3.0 (2.9-3.5cm)Left Atrium(2D)3.8 (1.6-4.0cm) IVSd1.4 (0.7-1.1cm)Aortic Root(2D)3.2 (2.0-3.7cm) LVDd5.2 (3.9-5.9cm)LVOT Diameter2.0 (1.8-2.4cm) PWd1.3 (0.7-1.1cm)LVDs3.2 (2.5-4.0cm) LVEF(%)68.0 (>50%) Aortic Valve AoV Peak Jack.340.8cm/sAoV VTI91.6cm AO Peak GR.46.5mmHgLVOT Peak Jack.77.7cm/s LVOT VTI 20.46cmAO Mean GR.32mmHg AI P 1/2 Ylvx470km Mitral Valve MV E Dehwmmob243.8cm/sMV E Peak Gr.165mmHg MV DECEL HUNO455fzCR A Msawzqwa17.8cm/s MV E Mean Gr.3mmHgMV LQJ38vv E/A Ratio1.9MVA (PHT)3.92cm2 TDI E/Lateral E'39.5E/Medial E'44.0 Pulmonary Valve PV Peak Mlalwngt14.9cm/sPV Peak Grad.3mmHg Tricuspid Valve TR P. Vzdvyubw543xt/sRAP PWMCDTSK3atVm TR Peak Gr.74qiRcPVWJ04buNc Pulmonary Vein S1 Cvsnzbpy826.8cm/sD2 Fcgabklg23.8cm/s PVa ohrvpdjd465mvpk LEFT VENTRICLE The left ventricle is normal size. There is mild to moderate concentric left ventricular hypertrophy. The left ventricular systolic function is normal. The Ejection Fraction is 60-65%. There is normal L V segmental wall motion. Transmitral Doppler flow pattern is Grade II-pseudonormal filling dynamics. RIGHT VENTRICLE The right ventricle is mildly dilated. There is normal right ventricular wall thickness. The right ve ntricular systolic function is normal. There is a pacemaker lead in the right ventricle. ATRIA The left atrium is moderately dilated. The right atrium size is normal. There is a pacemaker lead see n in the right atrium. The interatrial septum is intact with no evidence for an atrial septal defect or patent foramen ovale as noted on 2-D or Doppler imaging. AORTIC VALVE The aortic valve is calcified and displays decreased opening. Doppler and Color Flow revealed mild to moderate aortic regurgitation. Calculated aortic valve area is .72 cm2 with maximum pressure gradien t of 58 mmHg and mean pressure gradient of 38 mmHg. Doppler and color-flow analysis revealed moderate to severe aortic stenosis. MITRAL VALVE The mitral valve is moderately thickened. There is no evidence of mitral valve prolapse. There is no mitral valve stenosis. Doppler and Color-flow revealed moderate to severe mitral regurgitation. TRICUSPID VALVE The tricuspid valve leaflets are thickened , but open well. Doppler and Color Flow revealed mild to m oderate tricuspid regurgitation with an estimated PAP of 65 mmHg. There is no tricuspid valve prolaps e or vegetation. There is no tricuspid valve stenosis. PULMONIC VALVE The pulmonic valve is not well visualized. Doppler and Color Flow revealed trace pulmonic valvular re gurgitation. GREAT VESSELS The aortic root is normal in size. The IVC was not visualized. PERICARDIAL EFFUSION There is no evidence of significant pericardial effusion. Critical Notification Critical Value: No <Conclusion> The left ventricular systolic function is normal. The Ejection Fraction is 60-65%. Pacemaker lead noted in RA/RV. The left atrium is moderately dilated. Moderate to severe aortic stenosis with mean gradient 38 mm Hg. Mild to moderate aortic regurgitation. Moderate to severe mitral regurgitation. Mild to moderate tricuspid regurgitation with an estimated PAP of 65 mmHg. There is no evidence of significant pericardial effusion. Signed by : Ara Thorne, Electronically Approved : 06/19/2019 11:37:14
--- NOTE | 2019-06-19 15:04 | RAD ---
MR#: [id number] Date of Study: 06/19/2019 Ordering Physician: ARA KRAMER, Referring Physician: REBEL HERNANDEZ Tech: ALIZA Rockwell, ARRT (R) (N) APPROVED REPORT Test Type: Pharmacological Stress Nurse/Tech: Jayna Perez R.N. Cardiac History: NM, pacemaker for CHB Medications: see ehr Medical History: see ehr Resting ECG: SR with ST segment depression and inverted Ts Resting Heart Rate: 63 bpm Resting Blood Pressure: 144/62mmHg Pretest Chest Pain: No chest pain Nurse/Tech Notes Lungs cta, heart tones regular Consent: The procedure was explained to the patient in lay terms. Informed consent was witnessed. Carlos Eduardo eout was entered into [employer]. History and Stress Test performed by RT Treva (R) (N) Pharm. Details Pharmacologic stress testing was performed using 0.4mg per 5ml of regadenoson given intravenously ove r 7-10 seconds. Stress Symptoms No chest pain or symptoms. POST EXERCISE Reason for Termination: Infusion complete Target HR: No Max HR: 95 bpm Max Blood Pressure: 130/61mmHg Chest Pain: No. Arrhythmia: No. Pacemaker began firing 1 minute into test, unable to determine any baseline changes ST Change: No. INTERPRETATION Stress EKG Conclusion: Baseline EKG showed sinus rhythm with inferolateral T wave inversions. Ventric ular paced rhythm during stress. No other arrhythmias. Imaging Protocol IMAGE PROTOCOL: Rest Tc-99m/stress Tc-99m 1 day Rest: Stress: Viability: Radiopharm.Tc99m UroejtwolAl01h Sestamibi Dose10.8mCi 30mCi Img Date 06/19/2019 06/19/2019 Inj-Img [id number]. 90min. Rest Admin Site:IV - Right AntecubitalAdministrator:RT Edgar (R)(N) Stress Admin Site: IV - Right AntecubitalAdministrator: RT Treva (R)(N) STRESS DATA End Diast. Vol.125.0mlLVEDV index BSA90.0ml End Syst. Vol.52.0mlLVESV index BSA37.0ml Myocardial Xynu296.0gEject. Attyecyz07.0% Stress Scores Regional WT0.00Summed WT11.00 Regional WM0.00Summed WM2.00 Study quality was good. Left Ventricular size was Normal at Rest and Stress. Lung uptake was . Left Ventricular ejection fraction is 65%. The rest and stress images show normal perfusion, normal contraction and thickening. LV Perf. Quant 17 Seg. SSS0.00 17 Seg. SRS1.00 17 Seg. SDS0.00 Stress Defect Extent (% LAD)0.00Rest Defect Extent (% LAD)0.00Rev. Defect Extent (% LAD)0.00 Stress Defect Extent (% LCX) 0.00Rest Defect Extent (% LCX)0.00Rev. Defect Extent (% LCX)0.00 Stress Defect Extent (% RCA)0.00Rest Defect Extent (% RCA)0.00Rev. Defect Extent (% RCA)0.00 Stress Defect Extent (% CHRIS)0.00Rest Defect Extent (% CHRIS)0.00Rev. Defect Extent (% CHRIS)0.00 Conclusion 1. Regadenoson cardioisotope stress test did not show any evidence of ischemia or infarct. 2. Normal left ventricular systolic function with ejection fraction calculated at 65%. 3. Low risk for cardiac events. Signed by : Ara Kramer, Electronically Approved : 06/19/2019 15:04:17
== END | disposition home or self-care (01) ==
LOC: ECHO 09:22
PROVIDERS: ATTEND Internal Medicine Cardiovascular Disease
DX: I08.3 Combined rheumatic disorders of mitral, aortic and tricuspid valves (principal); I44.2 Atrioventricular block, complete; I25.2 Old myocardial infarction; Z95.0 Presence of cardiac pacemaker; Z79.01 Long term (current) use of anticoagulants
CPT/HCPCS: 78452; 93017; 93306; A9500; J2785

== ENCOUNTER → 2020-06-16 | Outpatient (CLI) | payer MEDICARE ==
[~2020-06-16] MED LIST changes: -REGADENOSON 0.4 MG/5 ML DISP.SYRIN. IV ONE
--- NOTE | 2020-06-16 15:24 | RAD ---
PA and lateral chest x-ray compared to portable chest radiograph dated April 25, 2017 for shortness of breath and cough. FINDINGS: Lungs are hyperinflated consistent with COPD. There are bilateral pleural effusions. Bibasilar infiltrates cannot be excluded. Heart size is markedly enlarged. There is central vascular congestion, without alfonzo pulmonary edema. Dual-lead pacemaker is present. Bones are diffusely osteopenic. IMPRESSION: 1. Cardiomegaly with central vascular congestion and bilateral pleural effusions all suggestive of congestive heart failure. 2. Bibasilar infiltrates may be present as well. 3. COPD. 4. Osteopenia. Electronically signed by: Pedro Hyatt MD (06/16/2020 3:21 PM) [id number]
== END ==
LOC: RAD 11:57
PROVIDERS: ATTEND Internal Medicine
DX: J44.9 Chronic obstructive pulmonary disease, unspecified (principal); J90 Pleural effusion, not elsewhere classified; I51.7 Cardiomegaly; M85.88 Other specified disorders of bone density and structure, other site
CPT/HCPCS: 71046